=== PATIENT | female | born 1950 | race Caucasian/White ===

== ENCOUNTER 2016-05-17 09:17 | Day surgery (SDC) | payer OTHER ==
[~2016-05-17] VITALS: Ht 160 cm; Wt 94.8 kg
[~2016-05-17 09:17] MED LIST: ASMANEX TW200 MICRO1 IH; CARDIZEM CD,CA240 MG PO; CARDIZEM CD180 MG PO; CLARITIN-D 121 EACH PO; CLARITIN10 MG PO; CLONIDINE HCL0.1 MG PO; DIGOXIN125 MCG PO; EPIPEN ADU0.3 MG/0.3 IM; GLUCOPHAGE1000 MG PO; HUMALOG100 UNIT/1 SC; HYDRALAZINE HCL50 MG PO; LANTUS 10100 UNITS/ SC; LANTUS100 UNIT/1 IM; LASIX40 MG PO; NORCO 5/3251 TABLET PO; NOVOLOG100 UNIT/2 SQ; OMEPRAZOLE40 M1 PO; PEPCID20 MG PO; PREDNISONE10 MG PO; PREDNISONE20 MG PO; SINGULAIR10 MG PO; SPIRIVA RESPIMAT4 G1 IH; ZITHROMAX500 MG PO
[2016-05-17 09:51] LABS: HEMATOCRIT 33.3 % (36.0-46.0); MCH 27.2 PG (29.0-34.0); MCHC 31.8 G/DL (30.0-36.0); MCV 85.6 FL (83-99); MEAN PLAT.VOLUME 9.7 uM^3 (9.5-12.4); PLATELET COUNT 424 K/uL (156-360); RBC DIS.WIDTH-CV 14.8 % (11.8-14.6); RBC DIS.WIDTH-SD 45.5 % (39-53); RED BLOOD COUNT 3.89 M/uL (3.80-5.20)
[2016-05-17 10:07] VITALS: BP 186/77
[2016-05-17 10:10] LABS: ANION GAP 12 MEQ/L (2-14); CHLORIDE 108 MEQ/L (99-109); POTASSIUM 4.9 MEQ/L (3.7-5.4); SAMPLE HEMOLYSIS CHECK 0; SAMPLE ICTERIC CHECK 0; SAMPLE LIPEMIA CHECK 0; SODIUM 138 MEQ/L (136-147)
[2016-05-17 10:15] LABS: GFR ESTIMATE (CALCULATED) 11 mL/min/; GLUCOSE 187 mg/dL (70-99); UREA NITROGEN (BUN) 63 mg/dL (9-23)
[2016-05-17 10:19] LABS: WHITE BLOOD COUNT 18.6 K/uL (4.1-10.2)
[2016-05-17 14:29] LABS: POINT-OF-CARE METER ID UU13113675
[2016-05-17] MEDS ORDERED: NORCO 5/3251 TABLET PO (14:43)
[2016-05-17 15:18] VITALS: BP 155/68
[2016-05-17 16:22] VITALS: BP 181/78
[2016-05-17 17:25] VITALS: BP 189/78
== END 2016-05-17 17:50 | disposition home or self-care (01) ==
LOC: SDC 09:17
PROVIDERS: Surgery
PROC: 03180JD Bypass Left Brachial Artery to Upper Arm Vein with Synthetic Substitute, Open Approach (ICD-10-PCS; principal; 2016-05-17)
DX: I12.0 Hypertensive chronic kidney disease with stage 5 chronic kidney disease or end stage renal disease (principal); E11.22 Type 2 diabetes mellitus with diabetic chronic kidney disease; N18.6 End stage renal disease; I25.10 Atherosclerotic heart disease of native coronary artery without angina pectoris; I48.91 Unspecified atrial fibrillation; J45.909 Unspecified asthma, uncomplicated; K21.9 Gastro-esophageal reflux disease without esophagitis; Z79.4 Long term (current) use of insulin; Z88.0 Allergy status to penicillin; Z88.1 Allergy status to other antibiotic agents; Z88.2 Allergy status to sulfonamides; Z88.6 Allergy status to analgesic agent; Z88.5 Allergy status to narcotic agent; Z88.8 Allergy status to other drugs, medicaments and biological substances; Z80.1 Family history of malignant neoplasm of trachea, bronchus and lung; Z80.2 Family history of malignant neoplasm of other respiratory and intrathoracic organs
CPT/HCPCS: 80048; 82948; 85027; J0131; J0690; J1170; J1644; J2250; J2405; J3010

== ENCOUNTER 2016-06-13 11:00 | Inpatient (IN) | payer OTHER ==
[~2016-06-13] VITALS: Ht 160 cm; Wt 92.7 kg
[2016-06-13 12:10] LABS: BASOPHIL COUNT 0.1 K/uL (0-0.1); EOSINOPHIL (%) 0.8 % (0-5); EOSINOPHIL COUNT 0.2 K/uL (0-0.3); IMMATURE GRANULOCYTE (%) 0.9 % (0.0-0.7); IMMATURE GRANULOCYTE COUNT 0.2 K/uL; INSTRUMENT ABS NEUTROPHIL CT 17.1 K/uL; LYMPHOCYTE COUNT 1.7 K/uL (1.0-2.8); MCHC 31.7 G/DL (30.0-36.0); MCV 85.2 FL (83-99); MEAN PLAT.VOLUME 9.4 uM^3 (9.5-12.4); MONOCYTE (%) 4.3 % (3-12); MONOCYTE COUNT 0.9 K/uL (0-0.8); NEUTROPHIL COUNT 17.1 K/uL (1.8-6.4); PLATELET COUNT 439 K/uL (156-360); RBC DIS.WIDTH-CV 14.6 % (11.8-14.6); RBC DIS.WIDTH-SD 45.5 % (39-53); RED BLOOD COUNT 3.52 M/uL (3.80-5.20)
[2016-06-13 12:15] LABS: WHITE BLOOD COUNT 20.1 K/uL (4.1-10.2)
[2016-06-13 12:18] LABS: CHLORIDE 107 mEq/L (99-109); POTASSIUM 5.2 mEq/L (3.7-5.4); SODIUM 139 mEq/L (136-147)
[2016-06-13 12:20] LABS: GLUCOSE 204 mg/dL (70-99)
[2016-06-13 12:22] LABS: ANION GAP 14 MEQ/L (2-14); TOTAL BILIRUBIN 0.4 mg/dL (0.0-1.0)
[2016-06-13 12:24] LABS: ALKALINE PHOSPHATASE 89 IU/L (3-129); GFR ESTIMATE (CALCULATED) 9 mL/min/
[2016-06-13 12:25] LABS: UREA NITROGEN (BUN) 62 mg/dL (9-23)
[2016-06-13 12:31] LABS: TROP-I INTERPRETATION NEGATIVE; TROPONIN-I < 0.01 ng/mL (0.0-0.30)
[2016-06-13 14:31] LABS: BASE EXCESS -5.3 mEq/L (-3 to +3); BICARBONATE 18.8 mEq/L (22-26); CARBOXY HGB 0.9 % (0-5); DEVICE NC; METHEMOGLOBIN 0.9 % (0-1.5); O2 FLOW 2 L/MIN; PCO2 31 mm Hg (35-45); PO2 86 mm Hg (80-100); SITE RB; pH 7.39 (7.35-7.45)
[2016-06-13 14:32] LABS: TOTAL RESP RATE 16 resp/min
[2016-06-13] MEDS ORDERED: CLARITIN,ALAVAR10 MG PO (15:24)
[2016-06-13] MEDS ORDERED: CLONIDINE HCL0.1 MG PO (15:26)
[2016-06-13] MEDS ORDERED: HYDROXYZINE PAM25 MG PO (15:28)
[2016-06-13] MEDS ORDERED: PROAIR HFA8.5 GM IH (15:29)
[2016-06-13] MEDS ORDERED: OCEAN NASAL 0.645 ML BOTH NARES (15:30)
[2016-06-13] MEDS ORDERED: MAGNESIUM250 MG PO (15:30)
[2016-06-13] MEDS ORDERED: VITAMIN E400 UNIT PO (15:31)
[2016-06-13 15:46] LABS: POINT-OF-CARE METER ID UU13113702
[2016-06-13 22:15] VITALS: BP 233/98
[2016-06-13 22:33] VITALS: BP 233/98
[2016-06-14 03:22] VITALS: BP 188/75
[2016-06-14 05:31] LABS: ADD MIUA? YES; BILIRUBIN NEGATIVE; BLOOD NEGATIVE; COLOR YELLOW ((YELLOW)); GLUCOSE (STRIP) 50; KETONES NEGATIVE; LEUKOCYTES NEGATIVE; NITRITE NEGATIVE; PROTEIN (STRIP) >=500; SPECIFIC GRAVITY 1.012 (1.000-1.030); UROBILINOGEN 0.2 MG/DL (0.2-1.0)
[2016-06-14 06:03] LABS: BACTERIA 3+ /HPF; EPITHELIAL CELLS NONE SEEN /HPF; MUCUS NONE SEEN /LPF; RED BLOOD CELLS 0-5 /HPF (0-5); UCUL ADDED? NO; WHITE BLOOD CELLS 0-5 /HPF (0-5)
[2016-06-14 06:46] LABS: EOSINOPHIL (%) 0 % (0-5); HEMATOCRIT 26.9 % (36.0-46.0); IMMATURE GRANULOCYTE (%) 1.4 % (0.0-0.7); IMMATURE GRANULOCYTE COUNT 0.3 K/uL; LYMPHOCYTE COUNT 1.2 K/uL (1.0-2.8); MCH 26.9 PG (29.0-34.0); MCV 84.1 FL (83-99); MEAN PLAT.VOLUME 9.9 uM^3 (9.5-12.4); MONOCYTE (%) 0.9 % (3-12); MONOCYTE COUNT 0.2 K/uL (0-0.8); NEUTROPHIL (%) 90.6 % (45-76); PLATELET COUNT 391 K/uL (156-360); RBC DIS.WIDTH-CV 14.6 % (11.8-14.6); RBC DIS.WIDTH-SD 44.8 % (39-53); WHITE BLOOD COUNT 17.6 K/uL (4.1-10.2)
[2016-06-14 07:16] LABS: ANION GAP 13 MEQ/L (2-14); CHLORIDE 106 MEQ/L (99-109); GFR ESTIMATE (CALCULATED) 10 mL/min/; GLUCOSE 271 mg/dL (70-99); POTASSIUM 5.4 MEQ/L (3.7-5.4); SAMPLE HEMOLYSIS CHECK 0; SAMPLE ICTERIC CHECK 0; SAMPLE LIPEMIA CHECK 0; SODIUM 138 MEQ/L (136-147); UREA NITROGEN (BUN) 66 mg/dL (9-23)
[2016-06-14 08:20] VITALS: BP 181/75
[2016-06-14 08:35] LABS: INTERNAL CONTROL VALID? YES
[2016-06-14 12:07] VITALS: BP 172/74
[2016-06-14 16:19] VITALS: BP 186/81
[2016-06-14 19:10] VITALS: BP 181/78
[2016-06-15] VITALS (7 sets, daily range): BP systolic 145–194; BP diastolic 66–84
[2016-06-15 06:44] LABS: HEMATOCRIT 26.6 % (36.0-46.0); MCH 26.2 PG (29.0-34.0); MCHC 30.5 G/DL (30.0-36.0); MCV 86.1 FL (83-99); PLATELET COUNT 404 K/uL (156-360); RBC DIS.WIDTH-CV 14.8 % (11.8-14.6); RBC DIS.WIDTH-SD 46.4 % (39-53); RED BLOOD COUNT 3.09 M/uL (3.80-5.20); WHITE BLOOD COUNT 21.6 K/uL (4.1-10.2)
[2016-06-15 07:08] LABS: ANION GAP 13 MEQ/L (2-14); CHLORIDE 105 MEQ/L (99-109); GFR ESTIMATE (CALCULATED) 9 mL/min/; GLUCOSE 213 mg/dL (70-99); POTASSIUM 5.8 MEQ/L (3.7-5.4); SAMPLE HEMOLYSIS CHECK 0; SAMPLE ICTERIC CHECK 0; SAMPLE LIPEMIA CHECK 0; SODIUM 138 MEQ/L (136-147); UREA NITROGEN (BUN) 78 mg/dL (9-23)
[2016-06-15 08:06] LABS: EOSINOPHIL (%) 0.1 % (0-5); IMMATURE GRANULOCYTE (%) 1.3 % (0.0-0.7); IMMATURE GRANULOCYTE COUNT 0.3 K/uL; INSTRUMENT ABS NEUTROPHIL CT 17.4 K/uL; LYMPHOCYTE COUNT 2.8 K/uL (1.0-2.8); MONOCYTE (%) 5.3 % (3-12); MONOCYTE COUNT 1.2 K/uL (0-0.8); NEUTROPHIL (%) 80.2 % (45-76); NEUTROPHIL COUNT 17.4 K/uL (1.8-6.4)
[2016-06-15 08:15] LABS: POINT-OF-CARE METER ID UU13113781
[2016-06-16] VITALS (9 sets, daily range): BP systolic 158–205; BP diastolic 68–98
[2016-06-16 06:36] LABS: HEMATOCRIT 27.9 % (36.0-46.0); MCH 26.7 PG (29.0-34.0); MCHC 31.5 G/DL (30.0-36.0); MCV 84.5 FL (83-99); MEAN PLAT.VOLUME 9.6 uM^3 (9.5-12.4); PLATELET COUNT 400 K/uL (156-360); RBC DIS.WIDTH-CV 14.6 % (11.8-14.6); RBC DIS.WIDTH-SD 44.6 % (39-53); WHITE BLOOD COUNT 20.2 K/uL (4.1-10.2)
[2016-06-16 07:12] LABS: ANION GAP 14 MEQ/L (2-14); CHLORIDE 104 MEQ/L (99-109); GFR ESTIMATE (CALCULATED) 12 mL/min/; GLUCOSE 211 mg/dL (70-99); POTASSIUM 4.7 MEQ/L (3.7-5.4); SAMPLE HEMOLYSIS CHECK 0; SAMPLE ICTERIC CHECK 0; SAMPLE LIPEMIA CHECK 0; SODIUM 139 MEQ/L (136-147); UREA NITROGEN (BUN) 60 mg/dL (9-23)
[2016-06-16 07:39] LABS: POINT-OF-CARE METER ID UU13113781
[2016-06-16 08:07] LABS: EOSINOPHIL (%) 0.6 % (0-5); EOSINOPHIL COUNT 0.1 K/uL (0-0.3); IMMATURE GRANULOCYTE (%) 1.7 % (0.0-0.7); IMMATURE GRANULOCYTE COUNT 0.3 K/uL; INSTRUMENT ABS NEUTROPHIL CT 13.6 K/uL; LYMPHOCYTE COUNT 4.7 K/uL (1.0-2.8); MONOCYTE (%) 6.9 % (3-12); MONOCYTE COUNT 1.4 K/uL (0-0.8); NEUTROPHIL (%) 67.4 % (45-76); NEUTROPHIL COUNT 13.6 K/uL (1.8-6.4)
[2016-06-16 11:01] LABS: POINT-OF-CARE METER ID UU14174216
[2016-06-16 11:09] LABS: AHBS INDEX 0; HBSG INDEX 0.23; HEPATITIS B SURFACE ANTIBODY Nonreactive
[2016-06-16 11:11] LABS: ANTI-HEPATITIS A VIRUS (IGM) Nonreactive; ANTI-HEPATITIS B CORE (IGM) Nonreactive; HAV INDEX 0.11; HBC IgM INDEX 0.06
[2016-06-16 11:24] LABS: HPCA INDEX 12.98
[2016-06-16 21:14] LABS: POINT-OF-CARE METER ID UU14174216
[2016-06-17 00:33] VITALS: BP 182/78
[2016-06-17 04:57] VITALS: BP 176/64
[2016-06-17 08:22] LABS: HEMATOCRIT 28.6 % (36.0-46.0); MCH 26.7 PG (29.0-34.0); MCHC 31.5 G/DL (30.0-36.0); MCV 84.9 FL (83-99); PLATELET COUNT 416 K/uL (156-360); RBC DIS.WIDTH-CV 14.7 % (11.8-14.6); RBC DIS.WIDTH-SD 45.4 % (39-53); RED BLOOD COUNT 3.37 M/uL (3.80-5.20); WHITE BLOOD COUNT 21.7 K/uL (4.1-10.2)
[2016-06-17 08:29] LABS: ANION GAP 15 MEQ/L (2-14); CHLORIDE 103 MEQ/L (99-109); GFR ESTIMATE (CALCULATED) 11 mL/min/; GLUCOSE 266 mg/dL (70-99); POTASSIUM 4.1 MEQ/L (3.7-5.4); SAMPLE HEMOLYSIS CHECK 0; SAMPLE ICTERIC CHECK 0; SAMPLE LIPEMIA CHECK 0; SODIUM 138 MEQ/L (136-147); UREA NITROGEN (BUN) 70 mg/dL (9-23)
[2016-06-17 11:09] VITALS: BP 190/80
[2016-06-17 11:30] LABS: POINT-OF-CARE METER ID UU13113781
[2016-06-17 14:43] VITALS: BP 170/70
[2016-06-17 20:41] VITALS: BP 188/72
[2016-06-18] VITALS (11 sets, daily range): BP systolic 138–200; BP diastolic 50–80
[2016-06-18 07:02] LABS: HEMATOCRIT 29.5 % (36.0-46.0); MCH 26.9 PG (29.0-34.0); MCHC 31.5 G/DL (30.0-36.0); MCV 85.3 FL (83-99); MEAN PLAT.VOLUME 9.8 uM^3 (9.5-12.4); PLATELET COUNT 391 K/uL (156-360); RBC DIS.WIDTH-CV 14.4 % (11.8-14.6); RBC DIS.WIDTH-SD 44.2 % (39-53); RED BLOOD COUNT 3.46 M/uL (3.80-5.20); WHITE BLOOD COUNT 21.3 K/uL (4.1-10.2)
[2016-06-18 07:26] LABS: ANION GAP 13 MEQ/L (2-14); CHLORIDE 103 MEQ/L (99-109); GFR ESTIMATE (CALCULATED) 11 mL/min/; GLUCOSE 187 mg/dL (70-99); POTASSIUM 4.2 MEQ/L (3.7-5.4); SAMPLE HEMOLYSIS CHECK 0; SAMPLE ICTERIC CHECK 0; SAMPLE LIPEMIA CHECK 0; SODIUM 139 MEQ/L (136-147); UREA NITROGEN (BUN) 61 mg/dL (9-23)
[2016-06-18 07:50] LABS: POINT-OF-CARE METER ID UU14174216
[2016-06-18 08:02] LABS: ABS NEUTROPHIL COUNT 18.7; BAND NEUTROPHILS 0.4 % (0-8.0); EOSINOPHIL ABS CT 0.1; EOSINOPHILS 0.5 % (0-5.0); INSTRUMENT ABS NEUTROPHIL CT 15.4 K/uL; LYMPHOCYTES 7.9 % (15.0-45.0); MYELOCYTES 0.4 %; PLAT.SUFFICIENCY ADEQUATE; SEG.NEUTROPHILS 87.3 % (46.0-76.0)
[2016-06-18 11:22] LABS: POINT-OF-CARE METER ID UU14174216
[2016-06-18 14:55] LABS: POINT-OF-CARE METER ID UU14174216
[2016-06-18 15:00] LABS: POINT-OF-CARE METER ID UU13113702
[2016-06-18 16:13] LABS: POINT-OF-CARE METER ID UU14174216
[2016-06-19 00:19] VITALS: BP 158/62
[2016-06-19 04:49] VITALS: BP 160/64
[2016-06-19 06:43] LABS: ANION GAP 17 MEQ/L (2-14); CHLORIDE 100 MEQ/L (99-109); GFR ESTIMATE (CALCULATED) 10 mL/min/; GLUCOSE 152 mg/dL (70-99); POTASSIUM 4.3 MEQ/L (3.7-5.4); SAMPLE HEMOLYSIS CHECK 0; SAMPLE ICTERIC CHECK 0; SAMPLE LIPEMIA CHECK 0; SODIUM 137 MEQ/L (136-147); UREA NITROGEN (BUN) 79 mg/dL (9-23)
[2016-06-19 08:34] LABS: HEMATOCRIT 27.7 % (36.0-46.0); MCH 27.1 PG (29.0-34.0); MCHC 32.1 G/DL (30.0-36.0); MCV 84.2 FL (83-99); RBC DIS.WIDTH-CV 14.6 % (11.8-14.6); RBC DIS.WIDTH-SD 44.6 % (39-53); RED BLOOD COUNT 3.29 M/uL (3.80-5.20); WHITE BLOOD COUNT 24.9 K/uL (4.1-10.2)
[2016-06-19 09:10] LABS: ABS NEUTROPHIL COUNT 20.1; EOSINOPHIL ABS CT 0.5; EOSINOPHILS 2.2 % (0-5.0); INSTRUMENT ABS NEUTROPHIL CT 18.9 K/uL; LYMPHOCYTES 12.4 % (15.0-45.0); METAMYELOCYTES 1.3 %; PLAT.SUFFICIENCY ADEQUATE; PLATELET COUNT UNABLE TO REPORT K/uL (156-360); SEG.NEUTROPHILS 80.6 % (46.0-76.0)
[2016-06-19 11:50] VITALS: BP 171/72
[2016-06-19 12:14] LABS: POINT-OF-CARE METER ID UU14162508
[2016-06-19 16:20] VITALS: BP 157/71
[2016-06-19 16:38] LABS: POINT-OF-CARE METER ID UU14162508
[2016-06-19 19:35] VITALS: BP 155/69
[2016-06-19] MEDS ORDERED: CLONIDINE1 EAC2 TD (20:03)
[2016-06-19] MEDS ORDERED: APRESOLINE100 MG PO (20:05)
[2016-06-19] MEDS ORDERED: SPIRONOLACTONE25 MG PO (20:06)
[2016-06-19] MEDS ORDERED: FUROSEMIDE40 MG PO (20:06)
[2016-06-19] MEDS ORDERED: PREDNISONE10 MG PO (20:09)
== END 2016-06-19 21:35 | disposition home or self-care (01) | DRG 291 ==
LOC: EME 11:00 → 4EAST 14:23 → EDOF 14:23 → 4EAST 22:13 → 2EASTP 06-19 11:48
PROVIDERS: Emergency Medicine; Family Medicine; Family Medicine Sports Medicine; Internal Medicine Nephrology
PROC: 5A1D60Z (ICD-10-PCS; principal; 2016-06-15)
DX: I13.2 Hypertensive heart and chronic kidney disease with heart failure and with stage 5 chronic kidney disease, or end stage renal disease (principal); N17.9 Acute kidney failure, unspecified; N18.6 End stage renal disease; E11.22 Type 2 diabetes mellitus with diabetic chronic kidney disease; J45.901 Unspecified asthma with (acute) exacerbation; T46.2X5A Adverse effect of other antidysrhythmic drugs, initial encounter; D72.829 Elevated white blood cell count, unspecified; I50.9 Heart failure, unspecified; E87.5 Hyperkalemia; E78.5 Hyperlipidemia, unspecified; I48.2 Chronic atrial fibrillation; I87.8 Other specified disorders of veins; K21.9 Gastro-esophageal reflux disease without esophagitis; D64.9 Anemia, unspecified; F41.9 Anxiety disorder, unspecified; F32.9 Major depressive disorder, single episode, unspecified; M19.90 Unspecified osteoarthritis, unspecified site
CPT/HCPCS: 36600; 71020; 76770; 80048; 80053; 80069; 80074; 80162; 81003; 82803; 82948; 83880; 84484; 85025; 86706; 87070; 87205; 87449; 93005; 94640; 94640 76; 94799; 99202; 99281; 99285; J0360; J0456; J0696; J1200; J1644; J1815; J1940; J2930; J7050; J7512; J7644; Q0177

== ENCOUNTER 2016-07-12 10:51 | Emergency (ER) | payer OTHER ==
[~2016-07-12] VITALS: Ht 160 cm; Wt 96.3 kg
[~2016-07-12 10:51] MED LIST changes: +APRESOLINE100 MG PO; +CLARITIN,ALAVAR10 MG PO; +CLONIDINE1 EAC2 TD; +FUROSEMIDE40 MG PO; +HYDROXYZINE PAM25 MG PO; +MAGNESIUM250 MG PO; +OCEAN NASAL 0.645 ML BOTH NARES; +PROAIR HFA8.5 GM IH; +SPIRONOLACTONE25 MG PO; +VITAMIN E400 UNIT PO
[2016-07-12 12:09] LABS: HEMATOCRIT 28.9 % (36.0-46.0); MCH 26.9 PG (29.0-34.0); MCHC 30.8 G/DL (30.0-36.0); MCV 87.3 FL (83-99); MEAN PLAT.VOLUME 9.6 uM^3 (9.5-12.4); PLATELET COUNT 296 K/uL (156-360); RBC DIS.WIDTH-CV 14.9 % (11.8-14.6); RBC DIS.WIDTH-SD 47.8 % (39-53); RED BLOOD COUNT 3.31 M/uL (3.80-5.20); WHITE BLOOD COUNT 11.4 K/uL (4.1-10.2)
[2016-07-12 12:18] LABS: CHLORIDE 98 mEq/L (99-109); POTASSIUM 3.8 mEq/L (3.7-5.4); SODIUM 138 mEq/L (136-147)
[2016-07-12 12:20] LABS: GLUCOSE 109 mg/dL (70-99)
[2016-07-12 12:22] LABS: ANION GAP 11 MEQ/L (2-14)
[2016-07-12 12:24] LABS: GFR ESTIMATE (CALCULATED) 14 mL/min/
[2016-07-12 12:25] LABS: UREA NITROGEN (BUN) 19 mg/dL (9-23)
[2016-07-12] MEDS ORDERED: DELTASONE20 M1 PO (13:43)
[2016-07-12 13:55] VITALS: BP 178/59
== END 2016-07-12 13:59 | disposition home or self-care (01) ==
LOC: EME → EDBD 10:51 → EME 10:51
PROVIDERS: Emergency Medicine
DX: L29.9 Pruritus, unspecified (principal); L30.9 Dermatitis, unspecified; N18.5 Chronic kidney disease, stage 5; D64.9 Anemia, unspecified; E11.9 Type 2 diabetes mellitus without complications; Z99.2 Dependence on renal dialysis; Z79.4 Long term (current) use of insulin; Z88.1 Allergy status to other antibiotic agents; Z88.6 Allergy status to analgesic agent; Z88.2 Allergy status to sulfonamides
CPT/HCPCS: 80048; 85027; 99281; 99285; J1200; J2930

== ENCOUNTER 2016-08-14 19:34 | Emergency (ER) | payer OTHER ==
[~2016-08-14] VITALS: Ht 157.5 cm; Wt 93.2 kg
[~2016-08-14 19:34] MED LIST changes: +DELTASONE20 M1 PO
[2016-08-14] MEDS ORDERED: PREDNISONE50 MG PO (23:39)
[2016-08-14 23:59] VITALS: BP 188/81
== END 2016-08-15 | disposition home or self-care (01) ==
LOC: EME 19:34
DX: T78.40XA Allergy, unspecified, initial encounter (principal); I12.9 Hypertensive chronic kidney disease with stage 1 through stage 4 chronic kidney disease, or unspecified chronic kidney disease; N18.4 Chronic kidney disease, stage 4 (severe); E11.22 Type 2 diabetes mellitus with diabetic chronic kidney disease; Z99.2 Dependence on renal dialysis; J45.909 Unspecified asthma, uncomplicated; K21.9 Gastro-esophageal reflux disease without esophagitis; Z79.4 Long term (current) use of insulin; Z88.0 Allergy status to penicillin
CPT/HCPCS: 94640; 99281; 99284; J1200; J2930; J7512

== ENCOUNTER 2016-08-29 15:35 | Inpatient (IN) | payer OTHER ==
[~2016-08-29] VITALS: Ht 157.5 cm; Wt 95.3 kg
[~2016-08-29 15:35] MED LIST changes: +PREDNISONE50 MG PO
[2016-08-29 18:10] LABS: HEMATOCRIT 32.2 % (36.0-46.0); MCH 27.4 PG (29.0-34.0); MCV 85.6 FL (83-99); MEAN PLAT.VOLUME 9.7 uM^3 (9.5-12.4); PLATELET COUNT 274 K/uL (156-360); RBC DIS.WIDTH-SD 47.2 % (39-53); RED BLOOD COUNT 3.76 M/uL (3.80-5.20); WHITE BLOOD COUNT 15.3 K/uL (4.1-10.2)
[2016-08-29 18:19] LABS: CHLORIDE 90 mEq/L (99-109); POTASSIUM 3.7 mEq/L (3.7-5.4); SODIUM 132 mEq/L (136-147)
[2016-08-29 18:21] LABS: GLUCOSE 149 mg/dL (70-99)
[2016-08-29 18:22] LABS: ANION GAP 11 MEQ/L (2-14)
[2016-08-29 18:25] LABS: GFR ESTIMATE (CALCULATED) 21 mL/min/
[2016-08-29 18:26] LABS: UREA NITROGEN (BUN) 17 mg/dL (9-23)
[2016-08-29 18:32] LABS: TROP-I INTERPRETATION NEGATIVE; TROPONIN-I < 0.01 ng/mL (0.0-0.30)
[2016-08-29] MEDS ORDERED: SPIRIVA RESPIMAT4 GM IH (19:19)
[2016-08-29] MEDS ORDERED: HYDRALAZINE HCL50 MG PO (19:20)
[2016-08-29] MEDS ORDERED: CLONIDINE HCL0.2 MG PO (19:20)
[2016-08-29] MEDS ORDERED: DIAZEPAM5 MG PO (19:22)
[2016-08-29] MEDS ORDERED: PROVENTIL,2.5 MG/3 M IH (19:22)
[2016-08-29] MEDS ORDERED: AZITHROMYCIN250 MG PO (19:22)
[2016-08-29] MEDS ORDERED: LIDOCAINE-PRIL1 EACH TP (19:23)
[2016-08-29 19:46] LABS: ADD MIUA? YES; BILIRUBIN NEGATIVE; BLOOD NEGATIVE; COLOR YELLOW ((YELLOW)); GLUCOSE (STRIP) 50; KETONES NEGATIVE; LEUKOCYTES NEGATIVE; NITRITE NEGATIVE; PROTEIN (STRIP) >=500; SPECIFIC GRAVITY 1.005 (1.000-1.030); UROBILINOGEN 0.2 MG/DL (0.2-1.0)
[2016-08-29 19:51] LABS: BACTERIA 1+ /HPF; EPITHELIAL CELLS RARE /HPF; MUCUS TRACE /LPF; RED BLOOD CELLS 0-5 /HPF (0-5); WHITE BLOOD CELLS 0-5 /HPF (0-5)
[2016-08-30 01:02] VITALS: BP 175/78
[2016-08-30 02:52] LABS: POINT-OF-CARE METER ID UU14162513
[2016-08-30 04:29] VITALS: BP 172/80
[2016-08-30 05:45] LABS: EOSINOPHIL (%) 2.6 % (0-5); EOSINOPHIL COUNT 0.3 K/uL (0-0.3); HEMATOCRIT 26.8 % (36.0-46.0); IMMATURE GRANULOCYTE (%) 0.6 % (0.0-0.7); IMMATURE GRANULOCYTE COUNT 0.1 K/uL; INSTRUMENT ABS NEUTROPHIL CT 7.4 K/uL; LYMPHOCYTE COUNT 2.1 K/uL (1.0-2.8); MCH 28.6 PG (29.0-34.0); MCHC 33.2 G/DL (30.0-36.0); MCV 86.2 FL (83-99); MONOCYTE (%) 8.6 % (3-12); MONOCYTE COUNT 0.9 K/uL (0-0.8); NEUTROPHIL (%) 68.6 % (45-76); NEUTROPHIL COUNT 7.4 K/uL (1.8-6.4); PLATELET COUNT 265 K/uL (156-360); RBC DIS.WIDTH-CV 15.2 % (11.8-14.6); RBC DIS.WIDTH-SD 47.7 % (39-53); RED BLOOD COUNT 3.11 M/uL (3.80-5.20); WHITE BLOOD COUNT 10.7 K/uL (4.1-10.2)
[2016-08-30 05:55] LABS: ANION GAP 9 MEQ/L (2-14); CHLORIDE 92 MEQ/L (99-109); GFR ESTIMATE (CALCULATED) 16 mL/min/; GLUCOSE 195 mg/dL (70-99); POTASSIUM 4.3 MEQ/L (3.7-5.4); SAMPLE HEMOLYSIS CHECK 0; SAMPLE ICTERIC CHECK 0; SAMPLE LIPEMIA CHECK 0; SODIUM 133 MEQ/L (136-147); UREA NITROGEN (BUN) 21 mg/dL (9-23)
[2016-08-30 07:29] LABS: POINT-OF-CARE METER ID UU13113831
[2016-08-30 08:00] VITALS: BP 168/64
[2016-08-30 08:01] LABS: POINT-OF-CARE METER ID UU13113831
[2016-08-30] MEDS ORDERED: SINGULAIR10 MG PO (10:34)
[2016-08-30] MEDS ORDERED: CARTIA XT240 MG PO (10:35)
[2016-08-30 12:26] VITALS: BP 175/75
[2016-08-30 12:31] LABS: POINT-OF-CARE METER ID UU14149397
[2016-08-30 19:45] VITALS: BP 180/50
[2016-08-30 20:36] LABS: POINT-OF-CARE METER ID UU14149397; POINT-OF-CARE USER ID 609231305
[2016-08-30 23:46] VITALS: BP 180/60
[2016-08-31 04:17] VITALS: BP 188/74
[2016-08-31 08:04] LABS: MCH 27.9 PG (29.0-34.0); MCHC 32.6 G/DL (30.0-36.0); MCV 85.7 FL (83-99); MEAN PLAT.VOLUME 9.4 uM^3 (9.5-12.4); PLATELET COUNT 272 K/uL (156-360); RBC DIS.WIDTH-CV 14.8 % (11.8-14.6); RBC DIS.WIDTH-SD 46.5 % (39-53); RED BLOOD COUNT 3.15 M/uL (3.80-5.20)
[2016-08-31 08:20] LABS: ANION GAP 11 MEQ/L (2-14); CHLORIDE 96 MEQ/L (99-109); GFR ESTIMATE (CALCULATED) 13 mL/min/; GLUCOSE 192 mg/dL (70-99); POTASSIUM 3.8 MEQ/L (3.7-5.4); SAMPLE HEMOLYSIS CHECK 0; SAMPLE ICTERIC CHECK 0; SAMPLE LIPEMIA CHECK 0; SODIUM 134 MEQ/L (136-147); UREA NITROGEN (BUN) 27 mg/dL (9-23)
[2016-08-31 08:24] VITALS: BP 160/80
[2016-08-31 11:31] LABS: POINT-OF-CARE METER ID UU14149397
[2016-08-31 13:17] LABS: POINT-OF-CARE METER ID UU14188577
[2016-08-31 15:45] VITALS: BP 146/76
[2016-08-31 16:34] LABS: POINT-OF-CARE METER ID UU14188577
[2016-08-31 20:40] VITALS: BP 150/66
[2016-09-01] VITALS (7 sets, daily range): BP systolic 142–183; BP diastolic 56–82
[2016-09-01 06:51] LABS: POINT-OF-CARE METER ID UU14149397
[2016-09-01 11:18] LABS: POINT-OF-CARE METER ID UU14188577
[2016-09-01 21:47] LABS: POINT-OF-CARE METER ID UU14188577
[2016-09-02 03:34] VITALS: BP 174/68
[2016-09-02 06:29] LABS: POINT-OF-CARE METER ID UU14188577
[2016-09-02 08:01] VITALS: BP 154/68
[2016-09-02 08:35] LABS: BASOPHIL COUNT 0.1 K/uL (0-0.1); EOSINOPHIL (%) 3.9 % (0-5); EOSINOPHIL COUNT 0.6 K/uL (0-0.3); HEMATOCRIT 33.5 % (36.0-46.0); IMMATURE GRANULOCYTE (%) 0.5 % (0.0-0.7); IMMATURE GRANULOCYTE COUNT 0.1 K/uL; INSTRUMENT ABS NEUTROPHIL CT 10.2 K/uL; LYMPHOCYTE COUNT 2.5 K/uL (1.0-2.8); MCH 27.5 PG (29.0-34.0); MCHC 31.6 G/DL (30.0-36.0); MEAN PLAT.VOLUME 9.5 uM^3 (9.5-12.4); MONOCYTE (%) 5.4 % (3-12); MONOCYTE COUNT 0.8 K/uL (0-0.8); NEUTROPHIL (%) 72.1 % (45-76); NEUTROPHIL COUNT 10.2 K/uL (1.8-6.4); PLATELET COUNT 320 K/uL (156-360); RBC DIS.WIDTH-SD 47.9 % (39-53); WHITE BLOOD COUNT 14.1 K/uL (4.1-10.2)
[2016-09-02 08:37] LABS: RED BLOOD COUNT 3.85 M/uL (3.80-5.20)
[2016-09-02 09:04] LABS: ANION GAP 13 MEQ/L (2-14); CHLORIDE 97 MEQ/L (99-109); GFR ESTIMATE (CALCULATED) 10 mL/min/; GLUCOSE 178 mg/dL (70-99); POTASSIUM 4.8 MEQ/L (3.7-5.4); SAMPLE HEMOLYSIS CHECK 0; SAMPLE ICTERIC CHECK 0; SAMPLE LIPEMIA CHECK 0; SODIUM 134 MEQ/L (136-147); UREA NITROGEN (BUN) 37 mg/dL (9-23)
[2016-09-02 13:05] VITALS: BP 186/75
[2016-09-02 13:16] LABS: POINT-OF-CARE METER ID UU14149397
[2016-09-03] MEDS ORDERED: ASMANEX TW200 MICRO1 IH (14:50)
[2016-09-03] MEDS ORDERED: VALIUM5 MG PO (17:47)
== END 2016-09-02 15:56 | disposition home or self-care (01) | DRG 299 ==
LOC: EME 15:35 → EDOF 23:00 → 5WEST 08-30 00:33 → 3EAST 08-30 11:29
PROVIDERS: Family Medicine Sports Medicine; Hospitalist; Internal Medicine Nephrology; Nurse Practitioner Family
PROC: 5A1D60Z (ICD-10-PCS; principal; 2016-08-30)
DX: I87.2 Venous insufficiency (chronic) (peripheral) (principal); I89.0 Lymphedema, not elsewhere classified; L30.9 Dermatitis, unspecified; L03.115 Cellulitis of right lower limb; L03.116 Cellulitis of left lower limb; E11.22 Type 2 diabetes mellitus with diabetic chronic kidney disease; I13.2 Hypertensive heart and chronic kidney disease with heart failure and with stage 5 chronic kidney disease, or end stage renal disease; N18.6 End stage renal disease; I50.9 Heart failure, unspecified; E78.5 Hyperlipidemia, unspecified; G89.29 Other chronic pain; M54.9 Dorsalgia, unspecified; I25.10 Atherosclerotic heart disease of native coronary artery without angina pectoris; I48.2 Chronic atrial fibrillation; J45.909 Unspecified asthma, uncomplicated; K21.9 Gastro-esophageal reflux disease without esophagitis; Z79.4 Long term (current) use of insulin; Z88.1 Allergy status to other antibiotic agents; Z99.2 Dependence on renal dialysis; Z88.0 Allergy status to penicillin; Z88.2 Allergy status to sulfonamides
CPT/HCPCS: 71020; 80048; 80069; 81003; 82948; 83880; 84484; 85025; 85027; 87040; 93005; 93970; 94640; 94640 76; 99202; 99281; 99285; G0378; J0456; J0690; J1644; J1815; J7050; Q0177

== ENCOUNTER 2016-09-03 14:06 | Emergency (ER) | payer OTHER ==
[~2016-09-03] VITALS: Ht 157.5 cm; Wt 90.0 kg
[~2016-09-03 14:06] MED LIST changes: +AZITHROMYCIN250 MG PO; +CARTIA XT240 MG PO; +CLONIDINE HCL0.2 MG PO; +DIAZEPAM5 MG PO; +LIDOCAINE-PRIL1 EACH TP; +PROVENTIL,2.5 MG/3 M IH; +SPIRIVA RESPIMAT4 GM IH
[2016-09-03] MEDS ORDERED: ASMANEX TW200 MICRO1 IH (14:50)
[2016-09-03 16:22] LABS: HEMATOCRIT 31.1 % (36.0-46.0); MCH 27.3 PG (29.0-34.0); MCHC 32.2 G/DL (30.0-36.0); MEAN PLAT.VOLUME 9.6 uM^3 (9.5-12.4); PLATELET COUNT 283 K/uL (156-360); RBC DIS.WIDTH-CV 14.9 % (11.8-14.6); RBC DIS.WIDTH-SD 45.7 % (39-53); RED BLOOD COUNT 3.66 M/uL (3.80-5.20); WHITE BLOOD COUNT 12.7 K/uL (4.1-10.2)
[2016-09-03 16:30] LABS: CHLORIDE 96 mEq/L (99-109); POTASSIUM 4.5 mEq/L (3.7-5.4); SODIUM 136 mEq/L (136-147)
[2016-09-03 16:32] LABS: GLUCOSE 167 mg/dL (70-99)
[2016-09-03 16:34] LABS: ANION GAP 12 MEQ/L (2-14)
[2016-09-03 16:36] LABS: GFR ESTIMATE (CALCULATED) 13 mL/min/
[2016-09-03 16:37] LABS: UREA NITROGEN (BUN) 22 mg/dL (9-23)
[2016-09-03] MEDS ORDERED: VALIUM5 MG PO (17:47)
[2016-09-03 18:38] VITALS: BP 145/71
== END 2016-09-03 18:41 | disposition home or self-care (01) ==
LOC: EME 14:06
PROVIDERS: Emergency Medicine
DX: R25.2 Cramp and spasm (principal); N18.6 End stage renal disease; Z99.2 Dependence on renal dialysis; E11.9 Type 2 diabetes mellitus without complications; K21.9 Gastro-esophageal reflux disease without esophagitis; J45.909 Unspecified asthma, uncomplicated; Z79.4 Long term (current) use of insulin; Z90.49 Acquired absence of other specified parts of digestive tract
CPT/HCPCS: 80048; 85027; 99281; 99285; J3360

== ENCOUNTER 2016-09-05 10:39 | Emergency (ER) | payer OTHER ==
[~2016-09-05] VITALS: Ht 157.5 cm; Wt 90.8 kg
[~2016-09-05 10:39] MED LIST changes: +VALIUM5 MG PO
[2016-09-05 11:33] LABS: HEMATOCRIT 29.2 % (36.0-46.0); MCH 27.6 PG (29.0-34.0); MCHC 32.2 G/DL (30.0-36.0); MCV 85.9 FL (83-99); PLATELET COUNT 289 K/uL (156-360); RBC DIS.WIDTH-SD 47.3 % (39-53); WHITE BLOOD COUNT 12.8 K/uL (4.1-10.2)
[2016-09-05 12:02] LABS: CHLORIDE 97 mEq/L (99-109); POTASSIUM 5.3 mEq/L (3.7-5.4); SODIUM 133 mEq/L (136-147)
[2016-09-05 12:06] LABS: ANION GAP 13 MEQ/L (2-14)
[2016-09-05 12:07] LABS: GLUCOSE 360 mg/dL (70-99)
[2016-09-05 12:08] LABS: GFR ESTIMATE (CALCULATED) 8 mL/min/
[2016-09-05 12:15] LABS: TROP-I INTERPRETATION NEGATIVE; TROPONIN-I < 0.01 ng/mL (0.0-0.30); UREA NITROGEN (BUN) 47 mg/dL (9-23)
[2016-09-05 12:47] VITALS: BP 174/59
== END 2016-09-05 12:47 | disposition home or self-care (01) ==
LOC: EME 10:39
PROVIDERS: Physician Assistant
DX: R06.02 Shortness of breath (principal); N18.9 Chronic kidney disease, unspecified; Z99.2 Dependence on renal dialysis; E11.22 Type 2 diabetes mellitus with diabetic chronic kidney disease; K21.9 Gastro-esophageal reflux disease without esophagitis; J45.909 Unspecified asthma, uncomplicated
CPT/HCPCS: 71020; 80048; 83880; 84484; 85027; 93005; 94640; 99281; 99284

== ENCOUNTER → 2016-11-13 | Outpatient (CLI) | payer OTHER | END | disposition home or self-care (01) | LOC: AMB 08:55 | DX: D04.5 Carcinoma in situ of skin of trunk (principal); L57.0 Actinic keratosis | CPT/HCPCS: 88305 ==

== ENCOUNTER 2017-02-14 07:12 | Observation (INO) | payer OTHER ==
[~2017-02-14] VITALS: Ht 157.5 cm; Wt 77.9 kg
[2017-02-14 08:13] LABS: HEMATOCRIT 38.5 % (36.0-46.0); MCH 25.6 PG (29.0-34.0); MCHC 32.2 G/DL (30.0-36.0); MCV 79.4 FL (83-99); MEAN PLAT.VOLUME 10.8 uM^3 (9.5-12.4); PLATELET COUNT 442 K/uL (156-360); RBC DIS.WIDTH-CV 16.3 % (11.8-14.6); RED BLOOD COUNT 4.85 M/uL (3.80-5.20)
[2017-02-14 08:23] LABS: CHLORIDE 100 mEq/L (99-109); POTASSIUM 3.8 mEq/L (3.7-5.4); SODIUM 137 mEq/L (136-147)
[2017-02-14 08:25] LABS: GLUCOSE 396 mg/dL (70-99)
[2017-02-14 08:26] LABS: ANION GAP 13 MEQ/L (2-14)
[2017-02-14 08:27] LABS: TOTAL BILIRUBIN 0.5 mg/dL (0.0-1.0)
[2017-02-14 08:29] LABS: ALKALINE PHOSPHATASE 92 IU/L (3-129); GFR ESTIMATE (CALCULATED) 59 mL/min/
[2017-02-14 08:30] LABS: UREA NITROGEN (BUN) 16 mg/dL (9-23)
[2017-02-14 08:54] LABS: ABS NEUTROPHIL COUNT 1.5; ATYPICAL LYMPHOCYTE 5.3 %; BAND NEUTROPHILS 4.4 % (0-8.0); BASOPHILS 4.4 %; EOSINOPHIL ABS CT 0; LYMPHOCYTES 2.6 % (15.0-45.0); METAMYELOCYTES 0.9 %; NUCLEATED RBC'S 1.8; PLAT.SUFFICIENCY INCREASED; SMUDGE CELLS 3.5
[2017-02-14 08:55] LABS: SEG.NEUTROPHILS 70.9 % (46.0-76.0)
[2017-02-14 09:54] LABS: ADD MIUA? YES; BILIRUBIN NEGATIVE; BLOOD NEGATIVE; COLOR YELLOW ((YELLOW)); GLUCOSE (STRIP) >=500; KETONES NEGATIVE; LEUKOCYTES NEGATIVE; NITRITE POSITIVE; PROTEIN (STRIP) 30; SPECIFIC GRAVITY 1.012 (1.000-1.030); UROBILINOGEN 0.2 MG/DL (0.2-1.0)
[2017-02-14 09:59] LABS: BACTERIA 2+ /HPF; EPITHELIAL CELLS RARE /HPF; MUCUS NONE SEEN /LPF; RED BLOOD CELLS 0-5 /HPF (0-5); UCUL ADDED? YES; WHITE BLOOD CELLS 0-5 /HPF (0-5)
[2017-02-14] MEDS ORDERED: APRESOLINE50 MG PO (11:23)
[2017-02-14] MEDS ORDERED: MAGOX 400400 MG PO (11:25)
[2017-02-14] MEDS ORDERED: PROTONIX40 MG PO (11:26)
[2017-02-14] MEDS ORDERED: LANTUS 10100 UNITS/ SC (11:27)
[2017-02-14] MEDS ORDERED: ADALAT CC 60 MG60 MG PO (11:28)
[2017-02-14] MEDS ORDERED: VALGANCICLOVIR450 MG PO (11:29)
[2017-02-14] MEDS ORDERED: ATOVAQUONE750 MG/5 M PO (11:31)
[2017-02-14] MEDS ORDERED: TACROLIMUS ANHYD1 MG PO (11:32)
[2017-02-14] MEDS ORDERED: PREDNISONE10 MG PO (11:32)
[2017-02-14] MEDS ORDERED: SALINE NASAL SP45 ML BOTH NARES (11:33)
[2017-02-14 12:23] LABS: TROP-I INTERPRETATION NEGATIVE; TROPONIN-I 0.07 ng/mL (0.0-0.30)
[2017-02-14 18:16] LABS: TROP-I INTERPRETATION NEGATIVE; TROPONIN-I 0.05 ng/mL (0.0-0.30)
[2017-02-14 20:14] VITALS: BP 136/65
[2017-02-14 21:20] LABS: POINT-OF-CARE METER ID UU13113700
[2017-02-14 23:38] VITALS: BP 122/58
[2017-02-14 23:46] LABS: TROP-I INTERPRETATION NEGATIVE; TROPONIN-I 0.06 ng/mL (0.0-0.30)
[2017-02-15 03:44] VITALS: BP 138/71
[2017-02-15 05:54] LABS: ANION GAP 9 MEQ/L (2-14); CHLORIDE 103 MEQ/L (99-109); GFR ESTIMATE (CALCULATED) 59 mL/min/; GLUCOSE 222 mg/dL (70-99); POTASSIUM 4.1 MEQ/L (3.7-5.4); SAMPLE HEMOLYSIS CHECK 0; SAMPLE ICTERIC CHECK 0; SAMPLE LIPEMIA CHECK 0; SODIUM 138 MEQ/L (136-147); UREA NITROGEN (BUN) 18 mg/dL (9-23)
[2017-02-15 08:25] VITALS: BP 166/80
[2017-02-15 08:57] LABS: Estimated Average Glucose 212 mg/dL (70-123)
[2017-02-15 09:09] LABS: POINT-OF-CARE METER ID UU13113831
[2017-02-15 11:35] VITALS: BP 152/78
[2017-02-15] MEDS ORDERED: CEFTIN500 MG PO (12:38)
[2017-02-15 12:57] LABS: POINT-OF-CARE METER ID UU13113700
== END 2017-02-15 14:19 | disposition home or self-care (01) ==
LOC: EME 07:12 → EDOF 10:44 → ENRESERV 10:50 → EDOF 11:24 → ENRESERV 17:59 → 5WEST 19:58
PROVIDERS: Internal Medicine; Nurse Practitioner Adult Health; Physician Assistant
DX: E11.65 Type 2 diabetes mellitus with hyperglycemia (principal); N39.0 Urinary tract infection, site not specified; I16.0 Hypertensive urgency; I10 Essential (primary) hypertension; Z79.4 Long term (current) use of insulin; Z94.0 Kidney transplant status; D72.819 Decreased white blood cell count, unspecified; Z92.25 Personal history of immunosuppression therapy; I48.91 Unspecified atrial fibrillation; J45.909 Unspecified asthma, uncomplicated; K21.9 Gastro-esophageal reflux disease without esophagitis; I25.10 Atherosclerotic heart disease of native coronary artery without angina pectoris; Z88.0 Allergy status to penicillin; Z88.1 Allergy status to other antibiotic agents; Z88.2 Allergy status to sulfonamides; Z88.8 Allergy status to other drugs, medicaments and biological substances; Z91.018 Allergy to other foods
CPT/HCPCS: 80048; 80053; 81003; 82800; 82948; 83036; 83605; 84484; 85025; 85027; 87040; 87077; 87086; 87186; 93005; 94640; 99202; G0378; J0360; J0696; J1650; J1815; J7120; J7507; J7512

== ENCOUNTER 2017-02-20 06:55 | Emergency (ER) | payer OTHER ==
[~2017-02-20] VITALS: Ht 157.5 cm; Wt 77.7 kg
[~2017-02-20 06:55] MED LIST changes: +ADALAT CC 60 MG60 MG PO; +APRESOLINE50 MG PO; +ATOVAQUONE750 MG/5 M PO; +CEFTIN500 MG PO; +MAGOX 400400 MG PO; +PROTONIX40 MG PO; +SALINE NASAL SP45 ML BOTH NARES; +TACROLIMUS ANHYD1 MG PO; +VALGANCICLOVIR450 MG PO
[2017-02-20 08:32] LABS: ADD MIUA? NO; BILIRUBIN NEGATIVE; BLOOD NEGATIVE; COLOR YELLOW ((YELLOW)); GLUCOSE (STRIP) NEGATIVE; KETONES NEGATIVE; LEUKOCYTES NEGATIVE; NITRITE NEGATIVE; PROTEIN (STRIP) 30; SPECIFIC GRAVITY 1.012 (1.000-1.030); UROBILINOGEN 0.2 MG/DL (0.2-1.0)
[2017-02-20 08:47] LABS: ANION GAP 12 MEQ/L (2-14); CHLORIDE 106 MEQ/L (99-109); GFR ESTIMATE (CALCULATED) > 59 mL/min/; GLUCOSE 126 mg/dL (70-99); POTASSIUM 3.7 MEQ/L (3.7-5.4); SAMPLE HEMOLYSIS CHECK 0; SAMPLE ICTERIC CHECK 0; SAMPLE LIPEMIA CHECK 0; SODIUM 142 MEQ/L (136-147); UREA NITROGEN (BUN) 14 mg/dL (9-23)
[2017-02-20] MEDS ORDERED: SYMBICORT60 INHALA1 IH (11:22)
[2017-02-20 11:52] VITALS: BP 166/92
== END 2017-02-20 12:15 | disposition home or self-care (01) ==
LOC: EME 06:55
PROVIDERS: Physician Assistant
DX: J45.909 Unspecified asthma, uncomplicated (principal); K21.9 Gastro-esophageal reflux disease without esophagitis; E11.9 Type 2 diabetes mellitus without complications; Z79.4 Long term (current) use of insulin; Z94.0 Kidney transplant status; Z88.0 Allergy status to penicillin; Z88.1 Allergy status to other antibiotic agents; Z88.2 Allergy status to sulfonamides; Z88.6 Allergy status to analgesic agent; Z88.8 Allergy status to other drugs, medicaments and biological substances
CPT/HCPCS: 70360; 71020; 80048; 81003; 94640; 99281; 99285; Q0177

== ENCOUNTER 2017-03-19 16:55 | Emergency (ER) | payer OTHER ==
[~2017-03-19] VITALS: Ht 157.5 cm; Wt 76.7 kg
[~2017-03-19 16:55] MED LIST changes: +SYMBICORT60 INHALA1 IH
[2017-03-19 18:20] LABS: BASOPHIL (%) 0.7 % (0-1); BASOPHIL COUNT 0.1 K/uL (0-0.1); EOSINOPHIL (%) 2.8 % (0-5); EOSINOPHIL COUNT 0.2 K/uL (0-0.3); HEMATOCRIT 38.4 % (36.0-46.0); HEMOGLOBIN 12.4 G/DL (11.9-15.5); IMMATURE GRANULOCYTE (%) 0.6 % (0.0-0.7); LYMPHOCYTE (%) 10.2 % (15-42); LYMPHOCYTE COUNT 0.7 K/uL (1.0-2.8); MCH 26.3 PG (29.0-34.0); MCHC 32.3 G/DL (30.0-36.0); MCV 81.4 FL (83-99); MONOCYTE (%) 9.1 % (3-12); MONOCYTE COUNT 0.6 K/uL (0-0.8); NEUTROPHIL (%) 76.6 % (45-76); NEUTROPHIL COUNT 5.2 K/uL (1.8-6.4); PLATELET COUNT 235 K/uL (156-360); RBC DIS.WIDTH-CV 18.5 % (11.8-14.6); RED BLOOD COUNT 4.72 M/uL (3.80-5.20); WHITE BLOOD COUNT 6.8 K/uL (4.1-10.2)
[2017-03-19 18:43] LABS: CHLORIDE 107 mEq/L (99-109); POTASSIUM 3.7 mEq/L (3.7-5.4); SODIUM 137 mEq/L (136-147)
[2017-03-19 18:45] LABS: GLUCOSE 258 mg/dL (70-99)
[2017-03-19 18:49] LABS: GFR ESTIMATE (CALCULATED) 59 mL/min/
[2017-03-19 18:55] LABS: UREA NITROGEN (BUN) 14 mg/dL (9-23)
[2017-03-19 20:47] LABS: APPEARANCE SL.HAZY ((CLEAR)); BILIRUBIN NEGATIVE; BLOOD NEGATIVE; COLOR YELLOW ((YELLOW)); GLUCOSE (STRIP) 50; KETONES NEGATIVE; LEUKOCYTES NEGATIVE; NITRITE NEGATIVE; PROTEIN (STRIP) 30; UROBILINOGEN 0.2 MG/DL (0.2-1.0)
[2017-03-19 20:52] LABS: BACTERIA RARE /HPF; EPITHELIAL CELLS 2+ /HPF; MUCUS TRACE /LPF; RED BLOOD CELLS 0-5 /HPF (0-5); UCUL ADDED? NO; WHITE BLOOD CELLS 0-5 /HPF (0-5)
[2017-03-20 00:56] VITALS: BP 129/60
== END 2017-03-20 00:56 | disposition home or self-care (01) ==
LOC: EXP 16:55 → EME 16:55 → EXP 03-20 00:56
PROVIDERS: Nurse Practitioner Family
DX: N39.0 Urinary tract infection, site not specified (principal); Z94.0 Kidney transplant status; K21.9 Gastro-esophageal reflux disease without esophagitis; E11.9 Type 2 diabetes mellitus without complications; Z79.4 Long term (current) use of insulin; I10 Essential (primary) hypertension; J45.909 Unspecified asthma, uncomplicated; F41.9 Anxiety disorder, unspecified; Z90.49 Acquired absence of other specified parts of digestive tract; Z88.2 Allergy status to sulfonamides; Z88.1 Allergy status to other antibiotic agents; Z88.0 Allergy status to penicillin; Z88.6 Allergy status to analgesic agent; Z88.8 Allergy status to other drugs, medicaments and biological substances
CPT/HCPCS: 80048; 81003; 85025; 87086; 99281; 99285

== ENCOUNTER 2017-06-08 12:21 | Observation (INO) | payer OTHER ==
[~2017-06-08] VITALS: Ht 157.5 cm; Wt 78.5 kg
[~2017-06-08 12:21] MED LIST changes: +BASAGLAR K100 UNIT/1 SC; +ENVARSUS XR1 MG PO; -TACROLIMUS ANHYD1 MG PO
[2017-06-08 13:09] LABS: HEMATOCRIT 34.8 % (36.0-46.0); HEMOGLOBIN 11.2 G/DL (11.9-15.5); MCH 27.6 PG (29.0-34.0); MCHC 32.2 G/DL (30.0-36.0); MCV 85.7 FL (83-99); PLATELET COUNT 305 K/uL (156-360); RBC DIS.WIDTH-CV 17.9 % (11.8-14.6); RBC DIS.WIDTH-SD 56.2 % (39-53); RED BLOOD COUNT 4.06 M/uL (3.80-5.20)
[2017-06-08 13:20] LABS: CHLORIDE 112 mEq/L (99-109)
[2017-06-08 13:21] LABS: SODIUM 144 mEq/L (136-147)
[2017-06-08 13:22] LABS: GLUCOSE 175 mg/dL (70-99)
[2017-06-08 13:26] LABS: CREATININE 0.9 mg/dL (0.6-1.3); GFR ESTIMATE (CALCULATED) > 59 mL/min/
[2017-06-08 13:27] LABS: UREA NITROGEN (BUN) 16 mg/dL (9-23)
[2017-06-08 13:29] LABS: TROP-I INTERPRETATION NEGATIVE; TROPONIN-I < 0.01 ng/mL (0.0-0.30)
[2017-06-08] MEDS ORDERED: ENVARSUS XR4 MG PO (15:17)
[2017-06-08] MEDS ORDERED: PREDNISONE5 MG PO (15:18)
[2017-06-08] MEDS ORDERED: CELLCEPT500 MG PO (15:18)
[2017-06-08] MEDS ORDERED: MAVYRET 100-401 EACH PO (15:19)
[2017-06-08] MEDS ORDERED: ELIQUIS5 MG PO (15:19)
[2017-06-08] MEDS ORDERED: NORVASC5 MG PO (15:19)
[2017-06-08] MEDS ORDERED: QVAR 40 MCG IN7.3 GM IH (15:20)
[2017-06-08] MEDS ORDERED: LEXAPRO10 MG PO (15:20)
[2017-06-08] MEDS ORDERED: VITAMIN D31000 UNI2 PO (15:20)
[2017-06-08] MEDS ORDERED: NYSTOP60 GM TP (15:22)
[2017-06-08] MEDS ORDERED: HUMALOG100 UNIT/1 SC (15:22)
[2017-06-08] MEDS ORDERED: ATIVAN0.5 MG PO (15:22)
[2017-06-08] MEDS ORDERED: RISPERDAL3 MG PO (15:29)
[2017-06-08] MEDS ORDERED: TRAZODONE HCL50 MG PO (15:32)
[2017-06-08] MEDS ORDERED: CYANOCOBALAM1000 MCG PO (15:33)
[2017-06-08 19:35] LABS: TROP-I INTERPRETATION NEGATIVE; TROPONIN-I < 0.01 ng/mL (0.0-0.30)
[2017-06-08 20:38] VITALS: BP 156/72
[2017-06-08 23:50] VITALS: BP 171/74
[2017-06-09 00:53] LABS: TROP-I INTERPRETATION NEGATIVE; TROPONIN-I < 0.01 ng/mL (0.0-0.30)
[2017-06-09 03:25] VITALS: BP 170/82
[2017-06-09 06:06] LABS: HEMATOCRIT 36.8 % (36.0-46.0); HEMOGLOBIN 11.6 G/DL (11.9-15.5); MCH 27.4 PG (29.0-34.0); MCHC 31.5 G/DL (30.0-36.0); MCV 86.8 FL (83-99); PLATELET COUNT 291 K/uL (156-360); RBC DIS.WIDTH-CV 18.2 % (11.8-14.6); RBC DIS.WIDTH-SD 58.1 % (39-53); RED BLOOD COUNT 4.24 M/uL (3.80-5.20); WHITE BLOOD COUNT 6.1 K/uL (4.1-10.2)
[2017-06-09 06:37] LABS: CHLORIDE 106 MEQ/L (99-109); CREATININE 0.9 MG/DL (0.6-1.3); GFR ESTIMATE (CALCULATED) > 59 mL/min/; GLUCOSE 140 mg/dL (70-99); POTASSIUM 4.1 MEQ/L (3.7-5.4); SODIUM 142 MEQ/L (136-147); UREA NITROGEN (BUN) 16 mg/dL (9-23)
[2017-06-09 08:00] VITALS: BP 193/74
[2017-06-09 11:50] VITALS: BP 171/50
[2017-06-09 15:53] VITALS: BP 139/65
[2017-06-09 20:11] VITALS: BP 128/60
[2017-06-09 23:10] VITALS: BP 131/61
[2017-06-10 03:28] VITALS: BP 146/69
[2017-06-10 04:30] LABS: APPEARANCE CLEAR ((CLEAR)); BILIRUBIN NEGATIVE; BLOOD NEGATIVE; COLOR STRAW ((YELLOW)); GLUCOSE (STRIP) NEGATIVE; KETONES NEGATIVE; LEUKOCYTES NEGATIVE; NITRITE NEGATIVE; PROTEIN (STRIP) NEGATIVE; SPECIFIC GRAVITY 1.008 (1.000-1.030); UROBILINOGEN 0.2 MG/DL (0.2-1.0)
[2017-06-10 06:15] LABS: BASOPHIL (%) 0.9 % (0-1); BASOPHIL COUNT 0.1 K/uL (0-0.1); EOSINOPHIL COUNT 0.2 K/uL (0-0.3); HEMATOCRIT 38.2 % (36.0-46.0); HEMOGLOBIN 12.1 G/DL (11.9-15.5); IMMATURE GRANULOCYTE (%) 0.4 % (0.0-0.7); LYMPHOCYTE (%) 14.1 % (15-42); MCH 27.2 PG (29.0-34.0); MCHC 31.7 G/DL (30.0-36.0); MCV 85.8 FL (83-99); MONOCYTE (%) 9.3 % (3-12); MONOCYTE COUNT 0.6 K/uL (0-0.8); NEUTROPHIL (%) 72.3 % (45-76); NEUTROPHIL COUNT 4.9 K/uL (1.8-6.4); PLATELET COUNT 306 K/uL (156-360); RBC DIS.WIDTH-CV 17.8 % (11.8-14.6); RBC DIS.WIDTH-SD 55.8 % (39-53); RED BLOOD COUNT 4.45 M/uL (3.80-5.20); WHITE BLOOD COUNT 6.8 K/uL (4.1-10.2)
[2017-06-10 07:18] LABS: CHLORIDE 103 MEQ/L (99-109); CREATININE 0.9 MG/DL (0.6-1.3); GFR ESTIMATE (CALCULATED) > 59 mL/min/; GLUCOSE 131 mg/dL (70-99); POTASSIUM 3.9 MEQ/L (3.7-5.4); SODIUM 141 MEQ/L (136-147); UREA NITROGEN (BUN) 20 mg/dL (9-23)
[2017-06-10 07:33] VITALS: BP 162/77
[2017-06-10 12:25] VITALS: BP 161/81
[2017-06-10] MEDS ORDERED: LOSARTAN POTASS25 MG PO (12:35)
[2017-06-10] MEDS ORDERED: AMLODIPINE BESY10 MG PO (12:35)
== END 2017-06-10 14:09 | disposition home or self-care (01) ==
LOC: EME 12:21 → EDOF 14:09 → 5WEST 14:09 → EDOF 14:09 → ENRESERV 14:17 → EDOF 14:27 → ENRESERV 18:35 → 5WEST 20:34 → ENPENDDIS 06-10 → 5WEST 06-10 14:09
PROVIDERS: Internal Medicine; Internal Medicine Nephrology
DX: R07.89 Other chest pain (principal); I12.9 Hypertensive chronic kidney disease with stage 1 through stage 4 chronic kidney disease, or unspecified chronic kidney disease; N18.4 Chronic kidney disease, stage 4 (severe); Z94.0 Kidney transplant status; Z86.711 Personal history of pulmonary embolism; Z86.718 Personal history of other venous thrombosis and embolism; Z79.01 Long term (current) use of anticoagulants; D63.1 Anemia in chronic kidney disease; J45.909 Unspecified asthma, uncomplicated; E11.22 Type 2 diabetes mellitus with diabetic chronic kidney disease; I48.0 Paroxysmal atrial fibrillation; K92.1 Melena; G89.29 Other chronic pain; M51.36 Other intervertebral disc degeneration, lumbar region; E78.5 Hyperlipidemia, unspecified; Z79.4 Long term (current) use of insulin; Z79.899 Other long term (current) drug therapy; Z92.25 Personal history of immunosuppression therapy; Z79.52 Long term (current) use of systemic steroids; Z90.49 Acquired absence of other specified parts of digestive tract; Z90.710 Acquired absence of both cervix and uterus; Z82.0 Family history of epilepsy and other diseases of the nervous system; Z80.1 Family history of malignant neoplasm of trachea, bronchus and lung; Z88.0 Allergy status to penicillin; Z88.1 Allergy status to other antibiotic agents; Z88.2 Allergy status to sulfonamides; Z88.8 Allergy status to other drugs, medicaments and biological substances; Z91.013 Allergy to seafood; Z91.018 Allergy to other foods; Z91.048 Other nonmedicinal substance allergy status
CPT/HCPCS: 71046; 80048; 80197 90; 81003; 82948; 84484; 85025; 85027; 93005; 94640; 94640 76; 99281; 99285; G0378; J1815; J7512; J7517

== ENCOUNTER 2017-06-22 23:03 | Emergency (ER) | payer OTHER ==
[~2017-06-22] VITALS: Ht 157.5 cm; Wt 79.8 kg
[~2017-06-22 23:03] MED LIST changes: +AMLODIPINE BESY10 MG PO; +ATIVAN0.5 MG PO; +CELLCEPT500 MG PO; +CYANOCOBALAM1000 MCG PO; +ELIQUIS5 MG PO; +ENVARSUS XR4 MG PO; +LEXAPRO10 MG PO; +LOSARTAN POTASS25 MG PO; +MAVYRET 100-401 EACH PO; +NORVASC5 MG PO; +NYSTOP60 GM TP; +PREDNISONE5 MG PO; +QVAR 40 MCG IN7.3 GM IH; +RISPERDAL3 MG PO; +TRAZODONE HCL50 MG PO; +VITAMIN D31000 UNI2 PO
[2017-06-23 00:49] VITALS: BP 142/71
[2017-06-24] MEDS ORDERED: BENTYL20 MG PO (16:23)
[2017-06-24] MEDS ORDERED: FLAGYL500 MG PO (16:23)
[2017-06-24] MEDS ORDERED: PERCOCET 5/31 TABLET PO (16:23)
== END 2017-06-23 00:44 | disposition home or self-care (01) ==
LOC: EME 23:03
DX: S40.021A Contusion of right upper arm, initial encounter (principal); S00.03XA Contusion of scalp, initial encounter; M54.2 Cervicalgia; W10.9XXA Fall (on) (from) unspecified stairs and steps, initial encounter; Y92.009 Unspecified place in unspecified non-institutional (private) residence as the place of occurrence of the external cause; I13.0 Hypertensive heart and chronic kidney disease with heart failure and stage 1 through stage 4 chronic kidney disease, or unspecified chronic kidney disease; E11.22 Type 2 diabetes mellitus with diabetic chronic kidney disease; N18.4 Chronic kidney disease, stage 4 (severe); I50.9 Heart failure, unspecified; Z99.2 Dependence on renal dialysis; Z79.4 Long term (current) use of insulin; F41.9 Anxiety disorder, unspecified; J45.909 Unspecified asthma, uncomplicated; K21.9 Gastro-esophageal reflux disease without esophagitis; Z94.0 Kidney transplant status; Z88.2 Allergy status to sulfonamides; Z88.1 Allergy status to other antibiotic agents; Z88.0 Allergy status to penicillin
CPT/HCPCS: 70450; 72125; 73060; 73090; 99281; 99284

== ENCOUNTER 2017-06-24 11:22 | Emergency (ER) | payer OTHER ==
[~2017-06-24] VITALS: Ht 157.5 cm; Wt 79.6 kg
[2017-06-24 12:07] LABS: HEMATOCRIT 35.5 % (36.0-46.0); HEMOGLOBIN 11.5 G/DL (11.9-15.5); MCH 27.9 PG (29.0-34.0); MCHC 32.4 G/DL (30.0-36.0); MCV 86.2 FL (83-99); PLATELET COUNT 303 K/uL (156-360); RBC DIS.WIDTH-CV 16.9 % (11.8-14.6); RBC DIS.WIDTH-SD 52.6 % (39-53); RED BLOOD COUNT 4.12 M/uL (3.80-5.20); WHITE BLOOD COUNT 9.9 K/uL (4.1-10.2)
[2017-06-24 12:20] LABS: ALBUMIN 3.6 g/dL (3.2-4.8); CHLORIDE 106 mEq/L (99-109); POTASSIUM 3.8 mEq/L (3.7-5.4); SODIUM 139 mEq/L (136-147)
[2017-06-24 12:22] LABS: GLUCOSE 108 mg/dL (70-99); TOTAL PROTEIN 6.3 g/dL (6.4-8.3)
[2017-06-24 12:26] LABS: ALKALINE PHOSPHATASE 98 IU/L (3-129)
[2017-06-24 12:27] LABS: UREA NITROGEN (BUN) 22 mg/dL (9-23)
[2017-06-24 12:28] LABS: AST (GOT) 75 IU/L (2-34)
[2017-06-24 12:29] LABS: ALT (GPT) 33 IU/L (3-49)
[2017-06-24 12:44] LABS: CREATININE 0.9 mg/dL (0.6-1.3); GFR ESTIMATE (CALCULATED) > 59 mL/min/
[2017-06-24 13:09] LABS: LIPASE 9 U/L (1.0-51.0)
[2017-06-24 15:00] LABS: APPEARANCE SL.HAZY ((CLEAR)); BILIRUBIN NEGATIVE; BLOOD NEGATIVE; COLOR YELLOW ((YELLOW)); GLUCOSE (STRIP) NEGATIVE; KETONES NEGATIVE; LEUKOCYTES NEGATIVE; NITRITE NEGATIVE; PROTEIN (STRIP) 30; SPECIFIC GRAVITY 1.023 (1.000-1.030); UROBILINOGEN 0.2 MG/DL (0.2-1.0)
[2017-06-24 15:13] LABS: BACTERIA NONE SEEN /HPF; EPITHELIAL CELLS 2+ /HPF; MUCUS TRACE /LPF; RED BLOOD CELLS 0-5 /HPF (0-5); UCUL ADDED? NO; WHITE BLOOD CELLS 0-5 /HPF (0-5)
[2017-06-24] MEDS ORDERED: BENTYL20 MG PO (16:23)
[2017-06-24] MEDS ORDERED: FLAGYL500 MG PO (16:23)
[2017-06-24] MEDS ORDERED: PERCOCET 5/31 TABLET PO (16:23)
[2017-06-24 16:41] VITALS: BP 107/48
== END 2017-06-24 16:44 | disposition home or self-care (01) ==
LOC: EME 11:22
DX: R10.84 Generalized abdominal pain (principal); I13.0 Hypertensive heart and chronic kidney disease with heart failure and stage 1 through stage 4 chronic kidney disease, or unspecified chronic kidney disease; E11.22 Type 2 diabetes mellitus with diabetic chronic kidney disease; N18.4 Chronic kidney disease, stage 4 (severe); I50.9 Heart failure, unspecified; Z94.0 Kidney transplant status; Z79.4 Long term (current) use of insulin; K21.9 Gastro-esophageal reflux disease without esophagitis; J45.909 Unspecified asthma, uncomplicated; F41.9 Anxiety disorder, unspecified; Z90.710 Acquired absence of both cervix and uterus; Z88.2 Allergy status to sulfonamides; Z88.1 Allergy status to other antibiotic agents; Z88.0 Allergy status to penicillin
CPT/HCPCS: 74176; 80053; 81003; 83605; 83690; 85027; 99281; 99285; J3010; J7040

== ENCOUNTER 2017-06-25 21:35 | Inpatient (IN) | payer OTHER ==
[~2017-06-25] VITALS: Ht 157.5 cm; Wt 83.1 kg
[~2017-06-25 21:35] MED LIST changes: +BENTYL20 MG PO; +FLAGYL500 MG PO; +PERCOCET 5/31 TABLET PO
[2017-06-25 22:07] LABS: HEMATOCRIT 33.2 % (36.0-46.0); HEMOGLOBIN 10.5 G/DL (11.9-15.5); MCH 27.6 PG (29.0-34.0); MCHC 31.6 G/DL (30.0-36.0); MCV 87.1 FL (83-99); PLATELET COUNT 298 K/uL (156-360); RBC DIS.WIDTH-CV 16.8 % (11.8-14.6); RBC DIS.WIDTH-SD 54.3 % (39-53); RED BLOOD COUNT 3.81 M/uL (3.80-5.20); WHITE BLOOD COUNT 7.5 K/uL (4.1-10.2)
[2017-06-25 22:18] LABS: ALBUMIN 3.6 g/dL (3.2-4.8); CHLORIDE 106 mEq/L (99-109); POTASSIUM 3.5 mEq/L (3.7-5.4); SODIUM 138 mEq/L (136-147)
[2017-06-25 22:20] LABS: GLUCOSE 154 mg/dL (70-99)
[2017-06-25 22:21] LABS: TOTAL PROTEIN 6.4 g/dL (6.4-8.3)
[2017-06-25 22:24] LABS: CREATININE 1.2 mg/dL (0.6-1.3); GFR ESTIMATE (CALCULATED) 47 mL/min/
[2017-06-25 22:25] LABS: UREA NITROGEN (BUN) 29 mg/dL (9-23)
[2017-06-25 22:26] LABS: AST (GOT) 53 IU/L (2-34)
[2017-06-25 22:27] LABS: LIPASE 11 U/L (1.0-51.0)
[2017-06-25 22:31] LABS: ALKALINE PHOSPHATASE 153 IU/L (3-129); ALT (GPT) 88 IU/L (3-49); TOTAL BILIRUBIN 0.6 mg/dL (0.0-1.0)
[2017-06-26 00:43] LABS: APPEARANCE SL.HAZY ((CLEAR)); BILIRUBIN NEGATIVE; BLOOD NEGATIVE; COLOR YELLOW ((YELLOW)); GLUCOSE (STRIP) NEGATIVE; KETONES NEGATIVE; LEUKOCYTES TRACE; NITRITE NEGATIVE; PROTEIN (STRIP) 30; SPECIFIC GRAVITY 1.021 (1.000-1.030); UROBILINOGEN 0.2 MG/DL (0.2-1.0)
[2017-06-26 00:47] LABS: BACTERIA RARE /HPF; EPITHELIAL CELLS 1+ /HPF; MUCUS TRACE /LPF; RED BLOOD CELLS 0-5 /HPF (0-5); UCUL ADDED? NO; WHITE BLOOD CELLS 0-5 /HPF (0-5)
[2017-06-26 01:49] LABS: MAGNESIUM 1.5 mg/dL (1.3-2.7)
[2017-06-26 01:54] LABS: PHOSPHORUS 4.2 mg/dL (2.5-4.9)
[2017-06-26 05:32] LABS: C DIFF TOXIN NEGATIVE (NEGATIVE)
[2017-06-26 05:56] LABS: ALBUMIN 3.2 g/dL (3.2-4.8); CHLORIDE 108 mEq/L (99-109); POTASSIUM 3.6 mEq/L (3.7-5.4); SODIUM 139 mEq/L (136-147)
[2017-06-26 05:59] LABS: GLUCOSE 145 mg/dL (70-99)
[2017-06-26 06:00] LABS: TOTAL PROTEIN 5.3 g/dL (6.4-8.3)
[2017-06-26 06:01] LABS: TOTAL BILIRUBIN 0.5 mg/dL (0.0-1.0)
[2017-06-26 06:02] LABS: ALKALINE PHOSPHATASE 130 IU/L (3-129); CREATININE 0.9 mg/dL (0.6-1.3); GFR ESTIMATE (CALCULATED) > 59 mL/min/
[2017-06-26 06:03] LABS: UREA NITROGEN (BUN) 23 mg/dL (9-23)
[2017-06-26 06:04] LABS: AST (GOT) 35 IU/L (2-34)
[2017-06-26 06:05] LABS: ALT (GPT) 70 IU/L (3-49)
[2017-06-26] MEDS ORDERED: PROAIR HFA8.5 GM IH (10:38)
[2017-06-26] MEDS ORDERED: LEXAPRO20 MG PO (10:41)
[2017-06-26] MEDS ORDERED: HUMALOG100 UNIT/1 SC (10:44)
[2017-06-26] MEDS ORDERED: CELLCEPT500 MG PO (10:46)
[2017-06-26] MEDS ORDERED: FLAGYL500 MG PO (10:46)
[2017-06-26] MEDS ORDERED: BENTYL20 MG PO (14:12)
[2017-06-26] MEDS ORDERED: NORVASC10 MG PO (14:20)
[2017-06-26] MEDS ORDERED: LOSARTAN POTASS25 MG PO (14:22)
[2017-06-26 15:08] VITALS: BP 149/67
[2017-06-26 20:00] VITALS: BP 161/70
[2017-06-27 01:38] VITALS: BP 135/67
[2017-06-27 06:00] LABS: BASOPHIL (%) 0.6 % (0-1); EOSINOPHIL (%) 1.6 % (0-5); EOSINOPHIL COUNT 0.1 K/uL (0-0.3); HEMATOCRIT 35.6 % (36.0-46.0); HEMOGLOBIN 10.9 G/DL (11.9-15.5); IMMATURE GRANULOCYTE (%) 0.4 % (0.0-0.7); LYMPHOCYTE (%) 18.1 % (15-42); LYMPHOCYTE COUNT 0.9 K/uL (1.0-2.8); MCH 26.8 PG (29.0-34.0); MCHC 30.6 G/DL (30.0-36.0); MCV 87.5 FL (83-99); MONOCYTE (%) 10.5 % (3-12); MONOCYTE COUNT 0.5 K/uL (0-0.8); NEUTROPHIL (%) 68.8 % (45-76); NEUTROPHIL COUNT 3.5 K/uL (1.8-6.4); PLATELET COUNT 280 K/uL (156-360); RBC DIS.WIDTH-CV 16.6 % (11.8-14.6); RBC DIS.WIDTH-SD 52.9 % (39-53); RED BLOOD COUNT 4.07 M/uL (3.80-5.20); WHITE BLOOD COUNT 5.1 K/uL (4.1-10.2)
[2017-06-27 06:42] LABS: ALBUMIN 3.1 G/DL (3.2-4.8); ALKALINE PHOSPHATASE 121 IU/L (3-129); ALT (GPT) 47 IU/L (3-49); AST (GOT) 19 IU/L (2-34); CHLORIDE 113 MEQ/L (99-109); CREATININE 0.8 MG/DL (0.6-1.3); GFR ESTIMATE (CALCULATED) > 59 mL/min/; MAGNESIUM 2.1 mg/dl (1.3-2.7); PHOSPHORUS 3.8 mg/dL (2.5-4.9); SODIUM 143 MEQ/L (136-147); TOTAL BILIRUBIN 0.8 MG/DL (0.0-1.0); TOTAL PROTEIN 5.6 G/DL (6.4-8.3); UREA NITROGEN (BUN) 12 mg/dL (9-23)
[2017-06-27 06:46] LABS: GLUCOSE 77 mg/dL (70-99)
[2017-06-27 06:47] LABS: POTASSIUM 4.6 MEQ/L (3.7-5.4)
[2017-06-27 07:45] VITALS: BP 138/85
[2017-06-27 11:45] VITALS: BP 153/67
[2017-06-27 16:38] VITALS: BP 146/70
[2017-06-27 19:50] VITALS: BP 148/69
[2017-06-27 23:27] VITALS: BP 122/65
[2017-06-28 03:44] VITALS: BP 139/67
[2017-06-28 07:06] LABS: CHLORIDE 111 MEQ/L (99-109); CREATININE 0.8 MG/DL (0.6-1.3); GFR ESTIMATE (CALCULATED) > 59 mL/min/; GLUCOSE 76 mg/dL (70-99); POTASSIUM 4.4 MEQ/L (3.7-5.4); SODIUM 143 MEQ/L (136-147); UREA NITROGEN (BUN) 12 mg/dL (9-23)
[2017-06-28 07:32] VITALS: BP 119/58
== END 2017-06-28 14:04 | disposition home or self-care (01) | DRG 391 ==
LOC: EME 21:35 → EDOF 06-26 07:49 → 5SOUTH 06-26 07:49 → ENRESERV 06-26 07:51 → 5SOUTH 06-26 14:47 → ENRESERV 06-26 21:07 → 5SOUTH 06-26 21:07 → ENPENDDIS 06-28 08:53 → 5SOUTH 06-28 14:04
PROVIDERS: Family Medicine; Physician Assistant
DX: K52.9 Noninfective gastroenteritis and colitis, unspecified (principal); N17.9 Acute kidney failure, unspecified; E86.0 Dehydration; E83.51 Hypocalcemia; E87.6 Hypokalemia; I12.0 Hypertensive chronic kidney disease with stage 5 chronic kidney disease or end stage renal disease; E11.22 Type 2 diabetes mellitus with diabetic chronic kidney disease; N18.6 End stage renal disease; Z94.0 Kidney transplant status; E87.2 Acidosis; I48.91 Unspecified atrial fibrillation; J45.909 Unspecified asthma, uncomplicated; I25.10 Atherosclerotic heart disease of native coronary artery without angina pectoris; E78.5 Hyperlipidemia, unspecified; E03.9 Hypothyroidism, unspecified; B19.20 Unspecified viral hepatitis C without hepatic coma; M51.9 Unspecified thoracic, thoracolumbar and lumbosacral intervertebral disc disorder; E66.9 Obesity, unspecified; Z68.33 Body mass index [BMI] 33.0-33.9, adult; K21.9 Gastro-esophageal reflux disease without esophagitis; Z86.010 Personal history of colon polyps; Z86.711 Personal history of pulmonary embolism; Z86.718 Personal history of other venous thrombosis and embolism; Z90.49 Acquired absence of other specified parts of digestive tract; Z79.01 Long term (current) use of anticoagulants; Z79.4 Long term (current) use of insulin; Z79.899 Other long term (current) drug therapy; Z90.710 Acquired absence of both cervix and uterus; Z80.1 Family history of malignant neoplasm of trachea, bronchus and lung; Z82.0 Family history of epilepsy and other diseases of the nervous system
CPT/HCPCS: 74176; 80048; 80053; 81003; 82948; 83605; 83630; 83690; 83735; 84100; 85025; 85027; 86645 90; 87177; 87329; 87493; 87506; 93005; 99281; 99285; J0610; J2405; J3010; J3475; J3480; J7030; J7040; J7050; J7512; J7517

== ENCOUNTER 2017-06-30 10:57 | Emergency (ER) | payer OTHER ==
[~2017-06-30] VITALS: Ht 157.5 cm; Wt 74.7 kg
[~2017-06-30 10:57] MED LIST changes: +LEXAPRO20 MG PO; +NORVASC10 MG PO
[2017-06-30 11:27] LABS: BASOPHIL (%) 0.2 % (0-1); EOSINOPHIL (%) 1.2 % (0-5); EOSINOPHIL COUNT 0.1 K/uL (0-0.3); HEMATOCRIT 35.2 % (36.0-46.0); HEMOGLOBIN 11.4 G/DL (11.9-15.5); IMMATURE GRANULOCYTE (%) 0.7 % (0.0-0.7); LYMPHOCYTE (%) 10.7 % (15-42); LYMPHOCYTE COUNT 0.9 K/uL (1.0-2.8); MCH 27.9 PG (29.0-34.0); MCHC 32.4 G/DL (30.0-36.0); MCV 86.3 FL (83-99); MONOCYTE (%) 6.7 % (3-12); MONOCYTE COUNT 0.6 K/uL (0-0.8); NEUTROPHIL (%) 80.5 % (45-76); NEUTROPHIL COUNT 6.9 K/uL (1.8-6.4); PLATELET COUNT 387 K/uL (156-360); RBC DIS.WIDTH-CV 16.8 % (11.8-14.6); RBC DIS.WIDTH-SD 52.5 % (39-53); RED BLOOD COUNT 4.08 M/uL (3.80-5.20); WHITE BLOOD COUNT 8.5 K/uL (4.1-10.2)
[2017-06-30 11:34] LABS: CHLORIDE 105 mEq/L (99-109); POTASSIUM 4.3 mEq/L (3.7-5.4); SODIUM 141 mEq/L (136-147)
[2017-06-30 11:36] LABS: GLUCOSE 75 mg/dL (70-99)
[2017-06-30 11:40] LABS: CREATININE 0.8 mg/dL (0.6-1.3); GFR ESTIMATE (CALCULATED) > 59 mL/min/
[2017-06-30 11:42] LABS: UREA NITROGEN (BUN) 22 mg/dL (9-23)
[2017-06-30 13:09] LABS: C DIFF TOXIN ND (NEGATIVE)
[2017-06-30] MEDS ORDERED: BENTYL20 MG PO (13:57)
[2017-06-30] MEDS ORDERED: ZOFRAN4 MG PO (13:57)
[2017-06-30] MEDS ORDERED: IMODIUM A-D2 M2 PO (13:57)
[2017-06-30 14:11] VITALS: BP 139/73
== END 2017-06-30 14:13 | disposition home or self-care (01) ==
LOC: EME 10:57
PROVIDERS: Emergency Medicine
DX: R19.7 Diarrhea, unspecified (principal); R11.0 Nausea; J45.909 Unspecified asthma, uncomplicated; I11.0 Hypertensive heart disease with heart failure; I50.9 Heart failure, unspecified; K21.9 Gastro-esophageal reflux disease without esophagitis; E11.9 Type 2 diabetes mellitus without complications; Z79.4 Long term (current) use of insulin; F41.9 Anxiety disorder, unspecified; Z94.0 Kidney transplant status; Z90.49 Acquired absence of other specified parts of digestive tract; Z88.2 Allergy status to sulfonamides; Z88.1 Allergy status to other antibiotic agents; Z88.0 Allergy status to penicillin; Z88.6 Allergy status to analgesic agent; Z88.8 Allergy status to other drugs, medicaments and biological substances
CPT/HCPCS: 80048; 85025; 87493; 99281; 99285; J7030

== ENCOUNTER 2017-08-05 10:15 | Inpatient (IN) | payer OTHER ==
[~2017-08-05] VITALS: Ht 157.5 cm; Wt 80.0 kg
[~2017-08-05 10:15] MED LIST changes: +CEFTIN250 MG PO; +IMODIUM A-D2 M2 PO; +ZOFRAN4 MG PO
[2017-08-05 10:42] LABS: HEMATOCRIT 37.8 % (36.0-46.0); HEMOGLOBIN 12.2 G/DL (11.9-15.5); MCHC 32.3 G/DL (30.0-36.0); MCV 83.6 FL (83-99); PLATELET COUNT 362 K/uL (156-360); RBC DIS.WIDTH-CV 15.4 % (11.8-14.6); RBC DIS.WIDTH-SD 47.1 % (39-53); RED BLOOD COUNT 4.52 M/uL (3.80-5.20)
[2017-08-05 10:55] LABS: ALBUMIN 3.9 g/dL (3.2-4.8); CHLORIDE 102 mEq/L (99-109); SODIUM 141 mEq/L (136-147)
[2017-08-05 10:58] LABS: GLUCOSE 193 mg/dL (70-99); TOTAL PROTEIN 7.3 g/dL (6.4-8.3)
[2017-08-05 11:00] LABS: TOTAL BILIRUBIN 0.8 mg/dL (0.0-1.0)
[2017-08-05 11:01] LABS: ALKALINE PHOSPHATASE 62 IU/L (3-129); GFR ESTIMATE (CALCULATED) 59 mL/min/
[2017-08-05 11:02] LABS: UREA NITROGEN (BUN) 20 mg/dL (9-23)
[2017-08-05 11:03] LABS: AST (GOT) 13 IU/L (2-34)
[2017-08-05 11:04] LABS: ALT (GPT) 11 IU/L (3-49)
[2017-08-05 12:27] LABS: LIPASE 10 U/L (1.0-51.0)
[2017-08-05 13:48] LABS: APPEARANCE CLEAR ((CLEAR)); BILIRUBIN NEGATIVE; BLOOD NEGATIVE; COLOR STRAW ((YELLOW)); GLUCOSE (STRIP) NEGATIVE; KETONES NEGATIVE; LEUKOCYTES NEGATIVE; NITRITE NEGATIVE; PROTEIN (STRIP) NEGATIVE; SPECIFIC GRAVITY 1.011 (1.000-1.030); UCUL ADDED? NO; UROBILINOGEN 0.2 MG/DL (0.2-1.0)
[2017-08-05 17:12] LABS: MAGNESIUM 1.7 mg/dL (1.3-2.7)
[2017-08-05 17:16] LABS: PHOSPHORUS 3.9 mg/dL (2.5-4.9)
[2017-08-05 17:45] VITALS: BP 124/82
[2017-08-05 19:45] VITALS: BP 124/64
[2017-08-05] MEDS ORDERED: NORVASC5 MG PO (20:16)
[2017-08-05] MEDS ORDERED: ENVARSUS XR1 MG PO (20:28)
[2017-08-05] MEDS ORDERED: RISPERDAL4 MG PO (20:32)
[2017-08-05] MEDS ORDERED: TETRACYCLINE H500 MG PO (20:35)
[2017-08-05] MEDS ORDERED: DESYREL100 MG PO (20:37)
[2017-08-06] VITALS (7 sets, daily range): BP systolic 116–136; BP diastolic 61–78
[2017-08-06 05:58] LABS: HEMATOCRIT 34.9 % (36.0-46.0); HEMOGLOBIN 10.8 G/DL (11.9-15.5); MCH 26.1 PG (29.0-34.0); MCHC 30.9 G/DL (30.0-36.0); MCV 84.3 FL (83-99); PLATELET COUNT 332 K/uL (156-360); RBC DIS.WIDTH-CV 15.3 % (11.8-14.6); RBC DIS.WIDTH-SD 46.6 % (39-53); RED BLOOD COUNT 4.14 M/uL (3.80-5.20); WHITE BLOOD COUNT 5.3 K/uL (4.1-10.2)
[2017-08-06 06:21] LABS: ALBUMIN 3.2 G/DL (3.2-4.8); ALKALINE PHOSPHATASE 41 IU/L (3-129); ALT (GPT) 10 IU/L (3-49); AST (GOT) 14 IU/L (2-34); CHLORIDE 106 MEQ/L (99-109); CREATININE 0.9 MG/DL (0.6-1.3); GFR ESTIMATE (CALCULATED) > 59 mL/min/; POTASSIUM 4.2 MEQ/L (3.7-5.4); SODIUM 142 MEQ/L (136-147); TOTAL BILIRUBIN 0.6 MG/DL (0.0-1.0); TOTAL PROTEIN 5.8 G/DL (6.4-8.3); UREA NITROGEN (BUN) 17 mg/dL (9-23)
[2017-08-06 06:22] LABS: GLUCOSE 94 mg/dL (70-99)
[2017-08-06] MEDS ORDERED: ENVARSUS XR4 MG PO (09:54)
[2017-08-06] MEDS ORDERED: ENVARSUS XR1 MG PO (11:27)
[2017-08-07 03:25] VITALS: BP 120/78
[2017-08-07 08:17] VITALS: BP 152/82
[2017-08-07] MEDS ORDERED: Salonpas 4% Patch TD (11:40)
[2017-08-07] MEDS ORDERED: IMODIUM A-D2 M2 PO (11:42)
== END 2017-08-07 14:27 | disposition home health service (06) | DRG 640 ==
LOC: EME 10:15 → ENRESERV 16:18 → 5SOUTH 16:18 → EDOF 16:18 → ENRESERV 16:21 → 5SOUTH 17:29
PROVIDERS: Family Medicine; Physician Assistant
DX: E87.2 Acidosis (principal); K52.9 Noninfective gastroenteritis and colitis, unspecified; L03.116 Cellulitis of left lower limb; L03.115 Cellulitis of right lower limb; E86.0 Dehydration; N30.90 Cystitis, unspecified without hematuria; I12.0 Hypertensive chronic kidney disease with stage 5 chronic kidney disease or end stage renal disease; E11.22 Type 2 diabetes mellitus with diabetic chronic kidney disease; N18.6 End stage renal disease; Z94.0 Kidney transplant status; I48.91 Unspecified atrial fibrillation; M51.36 Other intervertebral disc degeneration, lumbar region; J45.909 Unspecified asthma, uncomplicated; I25.10 Atherosclerotic heart disease of native coronary artery without angina pectoris; E78.5 Hyperlipidemia, unspecified; K21.9 Gastro-esophageal reflux disease without esophagitis; G47.00 Insomnia, unspecified; Z86.711 Personal history of pulmonary embolism; Z86.718 Personal history of other venous thrombosis and embolism; Z79.01 Long term (current) use of anticoagulants; Z79.4 Long term (current) use of insulin; Z79.899 Other long term (current) drug therapy; Z90.710 Acquired absence of both cervix and uterus
CPT/HCPCS: 72100; 80053; 81003; 82948; 83605; 83630; 83690; 83735; 84100; 85027; 87040; 87046; 87177; 87329; 87425-90; 87493; 87506; 93970; 99281; 99285; J0696; J1815; J3475; J7030; J7512

== ENCOUNTER 2017-10-13 08:23 | Emergency (ER) | payer OTHER ==
[~2017-10-13] VITALS: Ht 157.5 cm; Wt 83.4 kg
[~2017-10-13 08:23] MED LIST changes: +DESYREL100 MG PO; +RISPERDAL4 MG PO; +Salonpas 4% Patch TD; +TETRACYCLINE H500 MG PO
[2017-10-13 08:47] LABS: BASOPHIL (%) 0.6 % (0-1); BASOPHIL COUNT 0.1 K/uL (0-0.1); EOSINOPHIL (%) 1.2 % (0-5); EOSINOPHIL COUNT 0.1 K/uL (0-0.3); HEMATOCRIT 37.1 % (36.0-46.0); HEMOGLOBIN 12.2 G/DL (11.9-15.5); IMMATURE GRANULOCYTE (%) 0.4 % (0.0-0.7); LYMPHOCYTE (%) 14.4 % (15-42); LYMPHOCYTE COUNT 1.4 K/uL (1.0-2.8); MCH 26.8 PG (29.0-34.0); MCHC 32.9 G/DL (30.0-36.0); MCV 81.4 FL (83-99); MONOCYTE (%) 6.4 % (3-12); MONOCYTE COUNT 0.6 K/uL (0-0.8); NEUTROPHIL COUNT 7.7 K/uL (1.8-6.4); PLATELET COUNT 253 K/uL (156-360); RBC DIS.WIDTH-CV 15.9 % (11.8-14.6); RBC DIS.WIDTH-SD 47.1 % (39-53); RED BLOOD COUNT 4.56 M/uL (3.80-5.20)
[2017-10-13 08:57] LABS: CHLORIDE 104 mEq/L (99-109); POTASSIUM 4.7 mEq/L (3.7-5.4)
[2017-10-13 08:58] LABS: SODIUM 140 mEq/L (136-147)
[2017-10-13 08:59] LABS: GLUCOSE 242 mg/dL (70-99)
[2017-10-13 09:03] LABS: CREATININE 1.2 mg/dL (0.6-1.3); GFR ESTIMATE (CALCULATED) 47 mL/min/
[2017-10-13 09:04] LABS: UREA NITROGEN (BUN) 15 mg/dL (9-23)
[2017-10-13] MEDS ORDERED: ANTIVERT25 MG PO (11:09)
[2017-10-13 11:18] VITALS: BP 169/90
== END 2017-10-13 11:30 | disposition home or self-care (01) ==
LOC: EME 08:23
PROVIDERS: Emergency Medicine
DX: R42 Dizziness and giddiness (principal); I13.0 Hypertensive heart and chronic kidney disease with heart failure and stage 1 through stage 4 chronic kidney disease, or unspecified chronic kidney disease; E11.22 Type 2 diabetes mellitus with diabetic chronic kidney disease; N18.4 Chronic kidney disease, stage 4 (severe); I50.9 Heart failure, unspecified; J45.909 Unspecified asthma, uncomplicated; K21.9 Gastro-esophageal reflux disease without esophagitis; F41.9 Anxiety disorder, unspecified; Z94.0 Kidney transplant status; Z99.2 Dependence on renal dialysis; Z79.4 Long term (current) use of insulin; Z88.2 Allergy status to sulfonamides; Z88.1 Allergy status to other antibiotic agents; Z88.0 Allergy status to penicillin
CPT/HCPCS: 70450; 71045; 80048; 85025; 93005; 99281; 99284

== ENCOUNTER 2017-10-20 11:33 | Emergency (ER) | payer OTHER ==
[~2017-10-20] VITALS: Ht 162.6 cm; Wt 84.5 kg
[~2017-10-20 11:33] MED LIST changes: +ANTIVERT25 MG PO; +HUMALOG100 UNIT/2 SC
[2017-10-20 12:18] LABS: HEMATOCRIT 36.5 % (36.0-46.0); HEMOGLOBIN 11.9 G/DL (11.9-15.5); MCH 26.4 PG (29.0-34.0); MCHC 32.6 G/DL (30.0-36.0); MCV 80.9 FL (83-99); PLATELET COUNT 342 K/uL (156-360); RBC DIS.WIDTH-CV 16.3 % (11.8-14.6); RBC DIS.WIDTH-SD 48.2 % (39-53); RED BLOOD COUNT 4.51 M/uL (3.80-5.20); WHITE BLOOD COUNT 9.8 K/uL (4.1-10.2)
[2017-10-20 12:29] LABS: CHLORIDE 102 mEq/L (99-109); POTASSIUM 4.2 mEq/L (3.7-5.4); SODIUM 137 mEq/L (136-147)
[2017-10-20 12:31] LABS: GLUCOSE 261 mg/dL (70-99)
[2017-10-20 12:34] LABS: CREATININE 1.1 mg/dL (0.6-1.3); GFR ESTIMATE (CALCULATED) 52 mL/min/; SERUM ETHYL ALCOHOL < 10 mg/dL
[2017-10-20 12:35] LABS: UREA NITROGEN (BUN) 21 mg/dL (9-23)
[2017-10-20] MEDS ORDERED: LOSARTAN POTASS25 MG PO (13:13)
[2017-10-20] MEDS ORDERED: HUMALOG100 UNIT/2 SC (13:21)
[2017-10-20 14:38] LABS: APPEARANCE SL.HAZY ((CLEAR)); BILIRUBIN NEGATIVE; BLOOD NEGATIVE; COLOR YELLOW ((YELLOW)); GLUCOSE (STRIP) NEGATIVE; KETONES NEGATIVE; LEUKOCYTES LARGE; NITRITE POSITIVE; PROTEIN (STRIP) NEGATIVE; SPECIFIC GRAVITY 1.009 (1.000-1.030); UROBILINOGEN 0.2 MG/DL (0.2-1.0)
[2017-10-20 14:48] LABS: BACTERIA RARE /HPF; EPITHELIAL CELLS NONE SEEN /HPF; MUCUS TRACE /LPF; UCUL ADDED? YES; WHITE BLOOD CELLS TNTC /HPF (0-5)
[2017-10-20 14:51] LABS: AMPHETAMINE NEGATIVE (500 ng/mL); BENZODIAZEPINES NEGATIVE (150 ng/mL); COCAINE NEGATIVE (150 ng/mL); METHAMPHETAMINE NEGATIVE (500 ng/mL); OPIATES (MORPHINE) NEGATIVE (100 ng/mL); PHENCYCLIDINE NEGATIVE (25 ng/mL); THC CANNABINOIDS NEGATIVE (50 ng/mL); TRICYCLIC ANTIDEPRESSANTS NEGATIVE (300 ng/mL)
[2017-10-20 14:52] LABS: BARBITURATES NEGATIVE (200 ng/mL); BUPRENORPHINE NEGATIVE (10 ng/mL); METHADONE NEGATIVE (200 ng/mL); OXYCODONE NEGATIVE (100 ng/mL); PROPOXYPHENE NEGATIVE (300 ng/mL)
[2017-10-20] MEDS ORDERED: MACROBID100 MG PO (16:19)
[2017-10-20 17:09] VITALS: BP 125/73
== END 2017-10-20 17:11 ==
LOC: EME 11:33
PROVIDERS: Emergency Medicine
DX: R45.851 Suicidal ideations (principal); F32.9 Major depressive disorder, single episode, unspecified; Z94.0 Kidney transplant status; F29 Unspecified psychosis not due to a substance or known physiological condition; I11.0 Hypertensive heart disease with heart failure; J45.909 Unspecified asthma, uncomplicated; I50.9 Heart failure, unspecified; E11.9 Type 2 diabetes mellitus without complications; Z79.4 Long term (current) use of insulin; Z79.01 Long term (current) use of anticoagulants; Z79.52 Long term (current) use of systemic steroids; Z88.0 Allergy status to penicillin; Z88.1 Allergy status to other antibiotic agents; Z88.2 Allergy status to sulfonamides
CPT/HCPCS: 80048; 81003; 82948; 85027; 87077; 87086; 87186; 90837; 99281; 99285; G0480; J1815